=== PATIENT | female | born 1940 | race Caucasian/White ===

== ENCOUNTER 2021-03-01 05:02 | Inpatient (IN) ==
--- NOTE | 2021-01-20 16:19 | PAT Medication Instructions ---
Medication Instructions Date of Service January 20, 2021 Home Medications apixaban [Eliquis] 5 mg PO BID baclofen 10 mg PO HS cyanocobalamin (vitamin B-12) 1,000 mcg PO QAM docusate sodium [Stool Softener] 100 mg PO DAILY PRN ergocalciferol (vitamin D2) [Vitamin D2] 1,250 mcg PO WK hydrocodone-acetaminophen 1 tab PO Q6H PRN metoprolol succinate 25 mg PO HS rosuvastatin 10 mg PO HS sertraline 50 mg PO HS ASK your prescriber and surgeon apixaban [Eliquis] 5 mg PO BID (in order for spinal anesthesia, Eliquis needs to be stopped 72 hours/3 days before surgery. Please check if okay with doctor that prescribes this to you) DO NOT take the morning of surgery cyanocobalamin (vitamin B-12) 1,000 mcg PO QAM docusate sodium [Stool Softener] 100 mg PO DAILY PRN ergocalciferol (vitamin D2) [Vitamin D2] 1,250 mcg PO WK Take morning of surgery With a small sip of water, OTHERWISE NOTHING TO EAT OR DRINK AFTER MIDNIGHT: hydrocodone-acetaminophen 1 tab PO Q6H PRN (okay to take up to 4 hours prior to surgery if needed) Take evening before surgery baclofen 10 mg PO HS docusate sodium [Stool Softener] 100 mg PO DAILY PRN (if needed) hydrocodone-acetaminophen 1 tab PO Q6H PRN (if needed) metoprolol succinate 25 mg PO HS rosuvastatin 10 mg PO HS sertraline 50 mg PO HS Other Notes If you have any questions please call us at [phone] or [phone] or [phone] or [phone]
--- NOTE | 2021-01-23 08:25 | History & Physical Report ---
Date of Service Date of Service: January 24, 2021 Date of Procedure: 02/22/21 Procedure: Right Total Knee Arthroplasty Assessment & Plan (1) Arthritis of right knee: Risks and benefits of procedure discussed in detail today, patient would like to proceed with a Right total knee replacement at [facility] as scheduled. will obtain medical clearance from Dr Lyons prior to surgery as well as obtain PATs at [facility]. Will place on ASA 81mg po bid x 1 month post op, f/u 2 weeks post op for routine post-operative care and x-ray, sooner if having any problems. will make arrangements for HHPT at the time of discharge. At this point in time, has failed conservative measures and would like to proceed with surgical intervention. The risks and benefits have been discussed including, but not limited to, risk of infection, nerve injury, stiffness, loss of motion, failure to improve, etc. Reasonable outcomes and options of treatment were discussed. An explanation of appropriate alternatives to the procedure that may be advantageous were discussed and their risks and benefits, as well as the risks and benefits of not proceeding with treatment. I offered to answer any additional inquiries concerning the treatment involved. All the patient's questions were answered. The patient is agreeable, understanding of the treatment plan and alternatives, and wishes to proceed with the treatment plan. History of Present Illness Chief Complaint: Right knee pain Primary Care Provider: NO PCP Sabrina is a 80 year old female who complains of right knee pain, presents for pre-op evaluation prior to a right total knee replacement by Dr Martell at [facility]. she complains of pain, decreased range of motion and stiffness in her right knee. she states that the symptoms have been chronic and non-traumatic. Currently she states that the symptoms are moderate-severe and rated as 6/10. The pain is described as aching, sharp and throbbing. Her symptoms are aggravated by ascending stairs, daily activities, first steps while awake walking. Prior NSAIDs include Celebrex, she is unable to currently take NSAIDs due to Eliquis. she has been treated with previous cortisone injections in the past without much relief. she states that she typically uses a walker to assist with ambulation however since her stroke she also uses a wheelchair. Allergies Allergy/AdvReac Type Severity Reaction Status Date / Time amoxicillin Allergy Mild Rash Verified 01/19/21 09:16 celecoxib [From Celebrex] Allergy Mild Rash Verified 01/19/21 09:16 latex Allergy Mild Rash Verified 01/23/21 10:34 Sulfa (Sulfonamide Allergy Mild Rash Verified 01/19/21 09:16 Antibiotics) valdecoxib [From Bextra] Allergy Mild Rash Verified 01/19/21 09:16 tramadol Allergy Unknown Unknown Verified 01/23/21 10:34 reaction Home Medications Medication Instructions Recorded Confirmed Type apixaban [Eliquis] 5 mg PO BID 01/19/21 01/19/21 History baclofen 10 mg PO HS 01/19/21 01/19/21 History cyanocobalamin (vitamin B-12) 1,000 mcg PO QAM 01/19/21 01/19/21 History docusate sodium [Stool Softener] 100 mg PO DAILY PRN 01/19/21 01/19/21 History ergocalciferol (vitamin D2) 1,250 mcg PO WK 01/19/21 01/19/21 History [Vitamin D2] hydrocodone-acetaminophen 1 tab PO Q6H PRN 01/19/21 01/19/21 History metoprolol succinate 25 mg PO HS 01/19/21 01/19/21 History rosuvastatin 10 mg PO HS 01/19/21 01/19/21 History sertraline 50 mg PO HS 01/19/21 01/19/21 History Past Med/Surg History Medical History Atrial fibrillation Paroxysmal, follows with Dr. 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 Beliefs That Will Affect Care: Roman Catholic Roman Catholic Beliefs: JEHOVAW WITNESS (NO BLOOD PROCUCTS) Current Living Situation: Spouse Feels Safe at Home: Yes Assistive Devices: Denture - Upper, Glasses and Wheelchair Review of Systems Review of Systems: All systems reviewed & are unremarkable except as noted in HPI & below Constitutional: no fever, no chills and no sweats Respiratory: no cough and no dyspnea Cardiovascular: no chest pain, no dyspnea and no orthopnea Gastrointestinal: no abdominal pain, no nausea and no vomiting Musculoskeletal: as per Subjective / HPI Physical Exam Physical Exam: HT: 5ft 2in WT: 87.5kg BP: 130/80 Pulse: 67 Constitutional: WD/WN, vitals as above no acute distress Respiratory: normal respiratory effort, lungs clear to auscultation no respiratory distress, no labored breathing and does not use accessory muscles Cardiovascular: RRR, no murmur, no edema Gastrointestinal (Abdomen): normal bowel sounds, soft, nontender, no hepatosplenomegaly Musculoskeletal: Knee: + knee abnormal to inspection (Right Knee: ), + effusion (+1 effusion), + limited ROM of knee (ROM 0/3/110), + knee ROM with crepitation, + joint line tenderness (medial joint line) and + Shawna's sign positive; no deformity, no skin erythema, no ecchymosis, no valgus laxity, no varus laxity, anterior drawer test negative, Melvina's sign negative and pivot shift test negative Results & Data Results & Data ([facility]) Diagnostic Findings Right Knee X-ray: Right knee series showing advanced degenerative changes to the right knee, narrowing of the medial compartment and patello-femoral joint with patellar spurring noted, findings showing joint space narrowing of the medial compartment and patello-femoral joint, osteophyte formation and subchondral sclerosis noted. overall varus alignment. no acute bony pathology noted.
--- NOTE | 2021-01-23 10:58 | Anesthesiology Consultation ---
Date of Service January 23, 2021 Assessment & Plan (1) Encounter for pre-operative examination: - COVID screening: Per assessment on 01/23: Travel screen negative, no known COVID-19 positive contacts or current COVID-19 related symptoms. Surgeon arranging preop COVID testing. Awaiting results. - Eliquis instructions: patient made aware that in order for spinal anesthesia, Eliquis needs to be held 72 hours prior to surgery. Patient voiced understanding/will check if okay with prescriber. - Caodaism: OR made aware. No T&S done at [facility] per patient request Chart Review Chart Review: Acceptable Risk for Surgery (pending surgeon-ordered cardiology preop evaluation) and Patient seen in Pre Admission Testing Teaching & Discussion Pre-Anesthesia Teaching/Discussion Notes: Instructed NPO after midnight before surgery,except medications with 15 cc of water. Medication instructions provided according to the [facility] guidelines. History Surgery Operation Date: 02/22/21 11:10 Proposed Procedures p Total Knee Arthroplasty - Michael Martell DO Right side (confirmed with patient/booking sheet) Height/Weight Height: 5 ft 2 in Weight: 87.7 kg Allergies Allergy/AdvReac Type Severity Reaction Status Date / Time amoxicillin Allergy Mild Rash Verified 01/19/21 09:16 celecoxib [From Celebrex] Allergy Mild Rash Verified 01/19/21 09:16 latex Allergy Mild Rash Verified 01/23/21 10:34 Sulfa (Sulfonamide Allergy Mild Rash Verified 01/19/21 09:16 Antibiotics) valdecoxib [From Bextra] Allergy Mild Rash Verified 01/19/21 09:16 tramadol Allergy Unknown Unknown Verified 01/23/21 10:34 reaction Medications Home Medications Medication Instructions Recorded Confirmed Last Taken apixaban [Eliquis] 5 mg PO BID 01/19/21 01/19/21 Unknown baclofen 10 mg PO HS 01/19/21 01/19/21 Unknown cyanocobalamin (vitamin B-12) 1,000 mcg PO QAM 01/19/21 01/19/21 Unknown docusate sodium [Stool Softener] 100 mg PO DAILY PRN 01/19/21 01/19/21 Unknown ergocalciferol (vitamin D2) 1,250 mcg PO WK 01/19/21 01/19/21 Unknown [Vitamin D2] hydrocodone-acetaminophen 1 tab PO Q6H PRN 01/19/21 01/19/21 Unknown metoprolol succinate 25 mg PO HS 01/19/21 01/19/21 Unknown rosuvastatin 10 mg PO HS 01/19/21 01/19/21 Unknown sertraline 50 mg PO HS 01/19/21 01/19/21 Unknown Past Medical History Medical History Atrial fibrillation Paroxysmal, follows with Dr. 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 Exercise / Class Metabolic Activity III < 4 Walking/Shop/Light housework (uses walker) Past Family History Family History Other No family history of adverse response to anesthesia Past Surgical History Surgical History History of appendectomy History of arthroscopy Left knee History of cataract surgery R/L History of tonsillectomy History of tooth extraction Past Anesthesia History No Hx of Anesthesia Complications and No Family Hx of Anesthesia Complications History of PONV No Hx of PONV and No Hx of Motion Sickness Social History Smoking Status: Never smoker Do You Dip or Chew Tobacco: No Hx Alcohol Use: No Hx Substance Use: No substance use type: does not use Review of Systems No snoring. Patient denies chest pain, shortness of breath, fever, chills, cough, wheezing, palpitations. Physical Exam Vital Signs VITALS BP 166/81 P 59 TEMP 98.5 SP02 96%RA RESP 16 PHYSICAL Full cervical extension range of motion. Full TMJ range of motion. TMD 3.5 finger breaths Mallampati Score 3 Dentition: full upper denture, several missing lower Lungs: clear throughout to auscultation Cardiac: regular rate and rhythm, no murmurs noted Spine: normal Carotid arteries: negative bruit Extremities: non-pitting LE edema Lab Results Anesthesia Preop Results Results Anesthesia Widget: WBC 8.12 K/uL (4.8-10.8) 01/23/21 Hgb 14.3 g/dL (12.0-16.0) 01/23/21 Hct 42.4 % (37-47) 01/23/21 Plt 168 K/uL (130-400) 01/23/21 Na 141 mmol/L (136-145) 01/23/21 K 3.3 mmol/L (3.5-5.1) L 01/23/21 Cl 107 mmol/L (98-107) 01/23/21 CO2 28 mmol/L (21-32) 01/23/21 BUN 8 mg/dl (7-18) 01/23/21 Creat 0.83 mg/dl (0.6-1.2) 01/23/21 Glucose Level 96 mg/dl (70-99) 01/23/21 PT 10.3 Seconds (9.0-12.0) 01/23/21 PTT 26.8 Seconds (21.0-31.0) 01/23/21 INR 1.0 (0.9-1.1) 01/23/21 HA1c 6.2 % (4.5-5.6) H 01/23/21 Urine Color Dark Yellow 01/23/21 Urine Appearance Clear (Clear) 01/23/21 Urine pH 6.0 (4.5-7.5) 01/23/21 Urine Specific Kendall 1.036 (1.000-1.030) H 01/23/21 Urine Protein Trace (Negative) H 01/23/21 Urine Glucose (UA) Negative (Negative) 01/23/21 Urine Ketones Trace (Negative) H 01/23/21 Urine Blood Negative (Negative) 01/23/21 Urine Nitrite Negative (Negative) 01/23/21 Urine Bilirubin 1+ (Negative) H 01/23/21 Urine Urobilinogen Negative (Negative) 01/23/21 Urine Leukocyte Esterase 1+ (Negative) H 01/23/21 Urine WBC (Auto) 1-5 /hpf (0-5) 01/23/21 Urine RBC (Auto) 5-10 /hpf (0-4) H 01/23/21 Urine Hyaline Casts (Auto) 5-10 /lpf (0-5) H 01/23/21 Urine Epithelial Cells (Auto) >30 /lpf (0-5) H 01/23/21 Urine Bacteria (Auto) Negative (Negative) 01/23/21 Testing Electrocardiogram Date: 01/23/21 Findings: + SB @ (59) Chest X-Ray Date: 01/23/21 FINDINGS: No pneumothorax. No pleural effusions. No focal lung consolidations to suggest pneumonia. No evidence for pulmonary edema. The heart is normal in size. Mitral anus calcifications are noted. Prior cholecystectomy. Mild superior endplate compression deformity at L1. This is technically age indeterminate but likely old. IMPRESSION: No acute process. Echocardiogram Date: 04/11/18 LVEF 65%. Thickened aortic valve leaflets with no significant stenosis or regurgitation. Severe calcification of the posterior mitral valve annulus with no significant stenosis or regurgitation.
--- NOTE | 2021-02-01 12:46 | History & Physical Report ---
Date of Service date of service: February 01, 2021 Date of Procedure: 02/22/21 Procedure: Right Total Knee Arthroplasty Assessment & Plan (1) Arthritis of right knee: Risks and benefits of procedure discussed in detail today, patient would like to proceed with a Right total knee replacement at [facility] as scheduled. will obtain medical clearance from Dr Lyons prior to surgery as well as obtain PATs at [facility]. Will resume her Eliquis post op, f/u 2 weeks post op for routine post-operative care and x-ray, sooner if having any problems. will make arrangements for HHPT at the time of discharge. At this point in time, has failed conservative measures and would like to proceed with surgical intervention. The risks and benefits have been discussed including, but not limited to, risk of infection, nerve injury, stiffness, loss of motion, failure to improve, etc. Reasonable outcomes and options of treatment were discussed. An explanation of appropriate alternatives to the procedure that may be advantageous were discussed and their risks and benefits, as well as the risks and benefits of not proceeding with treatment. I offered to answer any additional inquiries concerning the treatment involved. All the patient's questions were answered. The patient is agreeable, understanding of the treatment plan and alternatives, and wishes to proceed with the treatment plan. History of Present Illness Chief Complaint: Right knee pain Primary Care Provider: NO PCP Sabrina is a 80 year old female who complains of right knee pain, presents for pre-op evaluation prior to a right total knee replacement by Dr Martell at [facility]. she complains of pain, decreased range of motion and stiffness in her right knee. she states that the symptoms have been chronic and non-traumatic. Currently she states that the symptoms are moderate-severe and rated as 6/10. The pain is described as aching, sharp and throbbing. Her symptoms are agg ravated by ascending stairs, daily activities, first steps while awake walking. Prior NSAIDs include Celebrex, she is unable to currently take NSAIDs due to Eliquis. she has been treated with previous cortisone injections in the past without much relief. she states that she typically uses a walker to assist with ambulation however since her stroke she also uses a wheelchair. Allergies Allergy/AdvReac Type Severity Reaction Status Date / Time amoxicillin Allergy Mild Rash Verified 01/19/21 09:16 celecoxib [From Celebrex] Allergy Mild Rash Verified 01/19/21 09:16 latex Allergy Mild Rash Verified 01/23/21 10:34 Sulfa (Sulfonamide Allergy Mild Rash Verified 01/19/21 09:16 Antibiotics) valdecoxib [From Bextra] Allergy Mild Rash Verified 01/19/21 09:16 tramadol Allergy Unknown Unknown Verified 01/23/21 10:34 reaction Home Medications Medication Instructions Recorded Confirmed Type apixaban [Eliquis] 5 mg PO BID 01/19/21 01/19/21 History baclofen 10 mg PO HS 01/19/21 01/19/21 History cyanocobalamin (vitamin B-12) 1,000 mcg PO QAM 01/19/21 01/19/21 History docusate sodium [Stool Softener] 100 mg PO DAILY PRN 01/19/21 01/19/21 History ergocalciferol (vitamin D2) 1,250 mcg PO WK 01/19/21 01/19/21 History [Vitamin D2] hydrocodone-acetaminophen 1 tab PO Q6H PRN 01/19/21 01/19/21 History metoprolol succinate 25 mg PO HS 01/19/21 01/19/21 History rosuvastatin 10 mg PO HS 01/19/21 01/19/21 History sertraline 50 mg PO HS 01/19/21 01/19/21 History Past Med/Surg History Medical History Atrial fibrillation Paroxysmal, follows with Dr. 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 Surgical History History of appendectomy History of arthroscopy Left knee History of cataract surgery R/L History of tonsillectomy History of tooth extraction Family History Other No family history of adverse response to anesthesia Social History Smoking Status: Never smoker Second Hand Exposure: Yes ( A CHILD); Hx Alcohol Use: No Hx Substance Use: No Preferred Language: Bengali Manager [employer] Required: No Beliefs That Will Affect Care: Baptist Baptist Beliefs: JEHOVAW WITNESS (NO BLOOD PROCUCTS) Current Living Situation: Spouse Feels Safe at Home: Yes Assistive Devices: Denture - Upper, Glasses and Wheelchair Review of Systems Review of Systems: All systems reviewed & are unremarkable except as noted in HPI & below Constitutional: no fever, no chills and no sweats Respiratory: no cough and no dyspnea Cardiovascular: no chest pain, no dyspnea and no orthopnea Gastrointestinal: no abdominal pain, no nausea and no vomiting Musculoskeletal: as per Subjective / HPI Physical Exam Physical Exam: HT: 5ft 2in WT: 87.5kg BP: 130/80 Pulse: 67 Constitutional: WD/WN, vitals as above no acute distress Respiratory: normal respiratory effort, lungs clear to auscultation no respiratory distress, no labored breathing and does not use accessory muscles Cardiovascular: RRR, no murmur, no edema Gastrointestinal (Abdomen): normal bowel sounds, soft, nontender, no hepatosplenomegaly Musculoskeletal: Knee: + knee abnormal to inspection (Right Knee: ), + effusion (+1 effusion), + limited ROM of knee (ROM 0/3/110), + knee ROM with crepitation, + joint line tenderness (medial joint line) and + Shawna's sign positive; no deformity, no skin erythema, no ecchymosis, no valgus laxity, no varus laxity, anterior drawer test negative, Melvina's sign negative and pivot shift test negative Results & Data Results & Data ([facility]) Diagnostic Findings Right Knee X-ray: Right knee series showing advanced degenerative changes to the right knee, narrowing of the medial compartment and patello-femoral joint with patellar spurring noted, findings showing joint space narrowing of the medial compartment and patello-femoral joint, osteophyte formation and subchondral sclerosis noted. overall varus alignment. no acute bony pathology noted.
[2021-03-01] MEDS ORDERED: FAMOTIDINE 20 MG TAB PO SCH (06:00)
[2021-03-01] MEDS ORDERED: TRANEXAMIC ACID 1,000 MG **IV Intra-op IV SCH (06:00)
[2021-03-01] MEDS ORDERED: TRANEXAMIC ACID 1,000 MG **IV Pre-op IV SCH (06:00)
[2021-03-01] MEDS ORDERED: LR 500ML BOLUS, THEN 15ML/HR IV SCH (06:00)
[2021-03-01] MEDS ORDERED: ROPIVACAINE 0.5% HCL/PF 150 MG, BUPIVACAINE 0.75% MPF 20 ML, EPINEPHrine 30MG/30ML (OR ... INSTIL SCH (06:00)
[2021-03-01] MEDS ORDERED: METOCLOPRAMIDE HCL 10 MG TABLET PO SCH (06:00)
[2021-03-01] MEDS ORDERED: VANCOMYCIN HCL 1,250 MG in SODIUM CHLORIDE 0.9% 250 ML IV SCH (06:00)
[2021-03-01] MEDS ORDERED: GABAPENTIN 300 MG CAP PO SCH (06:00)
[2021-03-01] MEDS ORDERED: dexAMETHasone 4 MG TAB PO SCH (06:00)
[2021-03-01] MEDS ORDERED: ACETAMINOPHEN 500 MG TAB PO SCH (06:00)
[2021-03-01] MEDS ORDERED: BUPIVACAINE 0.5 % 5 MG/1 ML PF 10ML VIAL ONE (06:14)
[2021-03-01] MEDS ORDERED: ROPIVACAINE 0.5% 5 MG/ML 30 ML VIAL ONE (06:15)
[2021-03-01] MEDS ORDERED: MIDAZOLAM HCL 1 MG/ML 2ML VIAL ONE ×2 (06:41)
[2021-03-01] MEDS ORDERED: fentaNYL citrate 100 MCG/2 ML VIAL ONE (06:42)
[2021-03-01] MEDS ORDERED: PROPOFOL IV EMULSION 10 MG/ML 20 ML VIAL IV ONE ×2 (06:46→08:58)
[2021-03-01] MEDS ORDERED: LIDOCAINE 2% 2 ML VIAL/AMP(20MG/ML) INFIL ONE (06:46)
[2021-03-01] MEDS ORDERED: ONDANSETRON INJ 2 MG/ML 2 ML VIAL IV PRN ×2 (06:59→10:27)
[2021-03-01] MEDS ORDERED: ATROPINE SULFATE 0.1 MG/ML 10ML SYR IV PRN (06:59)
[2021-03-01] MEDS ORDERED: ePHEDrine sulfate 50 MG/ML AMP IV PRN (06:59)
[2021-03-01] MEDS ORDERED: fentaNYL citrate 100 MCG/2 ML VIAL IV PRN (06:59)
[2021-03-01] MEDS ORDERED: HYDROmorphone INJ 1 MG/ML SYRINGE IV PRN ×2 (06:59→10:27)
[2021-03-01] MEDS ORDERED: ORTHO JOINT ANESTHETIC ONE (07:02)
--- NOTE | 2021-03-01 07:04 | History & Physical Bridge Note ---
Date of Service March 01, 2021 History & Physical Bridge Note I have examined the patient, reviewed the History & Physical and in the interval since the performance of the History & Physical I have noted the following changes of clinical significance: no changes noted
--- NOTE | 2021-03-01 08:34 | Operative Report ---
Post Operative Report Pre & Post Diagnosis Operation Date: 03/01/21 07:15 Pre-Op Diagnosis: Unilateral Primary Osteoarthritis Knee Right Post-Op Diagnosis: Unilateral Primary Osteoarthritis Knee Right I identified the patient and participated in the time-out.: Yes Procedure Operation Date: 03/01/21 07:15 Actual Procedures p Right Total Knee Arthroplasty(Right) utilizing [employer] persona patient matched total knee arthroplasty size 5 standard femur the tibia 13 medial constrained polytwenty 8 oval patella- Michael Martell DO Surgeon Michael Martell DO Waiter/[employer] Juan David PATEL Estimated Blood Loss 5 Findings See Below (Patient presents with severe end-stage DJD eburnated [id number] marginal osteophyte subchondral sclerosis moderate to large effusion) Specimens Bone and cartilage Drains Medium bore Hemovac Anesthesia Type MAC Spinal Regional Complications None Disposition Disposition: Recovery Room Indications Patient presents after failed attempted conservative management clinic physical therapy anti-inflammatories relative rest activity modification corticosteroid injection viscosupplementation patient presents for right total knee arthr oplasty Description of Procedure After proper prepping and draping of the Right lower extremity anterior midline incision was made over the region of the extensor extensor mechanism after meticulous hemostasis was obtained and maintained in subcutaneous tissues a medial parapatellar incision was made The patella was subluxed lateralward the medial lateral gutter were cleaned from any hypertrophic synovitis and scar tissue of the distal femoral block was placed and the distal femoral osteotomy cut was made subsequently the chamfers anterior and posterior osteotomy cuts were made utilizing the 4-in-1 block the tibia was subsequently subluxed anteriorward medial and ateral meniscal remnants were excised in their entirety remnants of the anterior and posterior cruciate ligaments were excised in their entirety excellent exposure of the proximal tibia was obtained the tibial osteotomy guide was placed on the proximal tibial osteotomy cut was made once again the knee was irrigated with copious amounts of sterile saline solution the patella was subsequently everted lateralward thickened scar tissue around the patella was removed the patella was subsequently cut utilizing a freehand technique and was drilled prepared for final preparation and placement of patella socially flexion-extension gaps were checked and the equal and symmetric trials were placed to the appropriate femoral and tibial trials with poly-spacer being placed for equal flexion and extension gaps and full range of motion including extension to 0 and flexion to 140 the trial components after having been taken to recovery range of motion was subsequently removed meticulous hemostasis was obtained and maintained subsequently a knee block injection of joint cocktail including ropivacaine 0.5% 150 mg. Bupivacaine 0.5% epinephrine 1-200,030 mL's toradol 30 mg dexamethasone 4 mg ketamine 10 mg clonidine 100 micrograms normal saline solution 30 mg was infiltrated into the soft tissues of the posterior knee medial lateral gutters and periosteal synovium special attention was paid to protect neurovascular structures at all times subsequently trial components having been removed the knee was irrigated with sterile saline solution. debris was removed the proximal tibia was subsequently prepared and was made ready for the placement of the tibial component tibial component was also cemented and tamped into position the femoral component was subsequently placed and cemented in the position the patellar component was subsequently cemented in position because hemostasis once again obtained and maintained wound having been thoroughly irrigated with debridement and debridement lavage was performed as well as a medial parapatellar incision closed with #1 Vicryl in interrupted fashion subcutaneous was closed with #2 Vicryl skin was closed with skin clips. PA-C was necessary for prepping and drapping as well as wound closure of deep fascia Sub cutaneous tissue and skin and was necessary for the case. A sterile compressive dressing was placed patient was taken to recovery in stable condition of report dictated by Jasbir I attest to the content of the Intraoperative Record and any orders documented therein. Any exceptions are noted below. I attest to the content of the Intraoperative Record and any orders documented therein. Any exceptions are noted below.
--- NOTE | 2021-03-01 09:55 | XRay Report ---
XR knee RT 1 or 2V routine CLINICAL HISTORY: Postoperative evaluation. COMPARISON: None FINDINGS: Alignment of the total right knee arthroplasty is anatomic. There is no periprosthetic fra cture or unexpected radiopaque foreign body. Skin micah are present. There are surgical drains. IMPRESSION: Expected findings following total right knee arthroplasty. ACT 112: Negative or not required by law. Electronically signed by: Alexander Gibson M.D. 03/01/2021 9:54 AM
--- NOTE | 2021-03-01 10:01 | Anesthesiology Progress Note ---
Date of Service March 01, 2021 Anesthesia Post Procedure Vital Signs Vital Signs: Temp Pulse Pulse Resp BP BP Pulse Ox 03/01/21 09:45 36.2 C L 72 22 152/74 H 95 03/01/21 09:35 74 17 142/67 H 98 03/01/21 09:25 73 16 140/71 100 03/01/21 09:15 77 16 135/66 100 03/01/21 09:09 36.5 C 82 16 127/58 L 98 03/01/21 06:19 36.9 C 62 18 178/91 H 96 Transfer of Care Handoff Completed per policy Notes Mental Status: alert / awake / arousable and participated in evaluation Patient Amnestic to Procedure: Yes Nausea / Vomiting: adequately controlled Pain: adequately controlled Airway Patency, RR, SpO2: stable & adequate BP & HR: stable & adequate Hydration State: stable & adequate Neuraxial Anesthesia: was administered and sensory block is resolving Anesthetic Complications: no major complications apparent
[2021-03-01] MEDS ORDERED: MAGNESIUM HYDROXIDE SUSP 30 ML UDC PO PRN (10:27)
[2021-03-01] MEDS ORDERED: NALOXONE HCL 0.4 MG/1 ML VIAL/CARP IV PRN (10:27)
[2021-03-01] MEDS ORDERED: diphenhydrAMINE Capsule 25 MG CAP PO PRN (10:27)
[2021-03-01] MEDS ORDERED: bisacodyL 10 MG SUPP PR PRN (10:27)
[2021-03-01] MEDS ORDERED: METOCLOPRAMIDE HCL INJ 5 MG/ML 2 ML VIAL IV PRN (10:27)
[2021-03-01] MEDS: SODIUM CHLORIDE 0.9% 1000ML 1,000 ML IV SCH ×2 (11:00→21:44)
[2021-03-01] MEDS: ACETAMINOPHEN 500 MG TAB PO SCH ×2 (13:48→21:46)
[2021-03-01] MEDS: CLINDAMYCIN 600 MG in DEXTROSE 5% 50 ML IV SCH (17:13)
[2021-03-01] MEDS: oxyCODONE HCL IR 5 MG TAB (IMMEDIATE RELEASE) PO PRN (18:47)
[2021-03-01] MEDS ORDERED: BACLOFEN 10 MG TAB PO SCH (21:00)
[2021-03-01] MEDS ORDERED: METOPROLOL SUCC 25MG EXT REL TAB PO SCH (21:00)
[2021-03-01] MEDS ORDERED: SENNA 8.6 MG TAB PO SCH (21:00)
[2021-03-01] MEDS ORDERED: ROSUVASTATIN CALCIUM 10 MG TAB PO SCH (21:00)
[2021-03-01] MEDS ORDERED: SERTRALINE HCL 50 MG TABLET PO SCH (21:00)
[2021-03-01] MEDS: DOCUSATE SODIUM 100 MG CAP PO SCH (21:45)
[2021-03-02] MEDS: CLINDAMYCIN 600 MG in DEXTROSE 5% 50 ML IV SCH (00:58)
[2021-03-02] MEDS: oxyCODONE HCL IR 5 MG TAB (IMMEDIATE RELEASE) PO PRN (04:23)
[2021-03-02 05:43] LABS: Hematocrit (blood only) 37.8 % (37-47); Hemoglobin 12.7 g/dL (12.0-16.0); Mean Corpuscular Hemoglobin 35.5 pg (25-34); Mean Corpuscular Hgb Conc 33.6 g/dL (32-36); Mean Corpuscular Volume 105.6 fL (80-100); Mean Platelet Volume 11.2 fL (7.4-10.4); Platelet Count 192 K/uL (130-400); RDW Coefficient of Variation 13.7 % (11.5-14.5); RDW Standard Deviation 52.9 fL (36.4-46.3); Red Blood Count 3.58 M/uL (4.2-5.4)
[2021-03-02] MEDS: ACETAMINOPHEN 500 MG TAB PO SCH (05:45)
[2021-03-02 06:09] LABS: BUN Creatinine Ratio 14.2 (10-20); Calcium 8.6 mg/dl (8.5-10.1); Est GFR (African American) 64.8 ml/min; Est GFR (Non-African American) 55.9 ml/min; Potassium 3.5 mmol/L (3.5-5.1)
--- NOTE | 2021-03-02 06:56 | Orthopedic Progress Note ---
Date of Service March 02, 2021 Assessment & Plan (1) History of total right knee replacement: Plan: POD #1 s/p Right TKA pt/ot dvt proph with ANA/SCD/ASA plan for d/c home with home health PT Admission and Anticipated Discharge Date Admission Date: March 01, 2021 Supervising Physician Co-Signing Physician Notes Patient seen and examined. Agree with JORGE Booker's note as above. Patient resting comfortably. Pain is controlled. She is getting ready to leave for home. Subjective POD #1 s/p Right TKA Review of Systems Constitutional: no fever, no chills and no sweats Respiratory: no cough and no dyspnea Cardiovascular: no chest pain and no dyspnea Gastrointestinal: no abdominal pain, no nausea and no vomiting Physical Exam Physical Exam: Vital Signs Temp Pulse Pulse Pulse Resp BP Pulse Ox 03/02/21 03:42 37.1 C 62 16 122/70 93 03/01/21 22:17 36.5 C 64 18 144/76 H 92 03/01/21 19:36 36.5 C 63 20 138/74 95 03/01/21 15:06 36.5 C 60 17 129/63 92 03/01/21 13:09 36.4 C L 70 16 125/77 92 03/01/21 12:13 36.3 C L 76 18 133/76 95 03/01/21 11:03 36.4 C L 65 16 135/64 91 03/01/21 10:35 36.4 C L 64 16 144/77 H 92 03/01/21 10:05 36.5 C 16 136/72 94 03/01/21 09:45 36.2 C L 72 22 152/74 H 95 03/01/21 09:35 74 17 142/67 H 98 03/01/21 09:25 73 16 140/71 100 03/01/21 09:15 77 16 135/66 100 03/01/21 09:09 36.5 C 82 16 127/58 L 98 Intake and Output 03/01/21 03/01/21 03/02/21 14:59 22:59 06:59 Intake Total 1700 / 3783.000 1629.000 / 3783.00 0 454 / 3783.000 Output Total 415 / 1415 525 / 1415 475 / 1415 Balance 1285 / 2368.000 1104.000 / 2368.00 0 -21 / 2368.000 Intake: IV 100 / 5949.860 7804.000 / 1583.00 0 54 / 1583.000 Clindamycin 60 0 mg In Dextrose 54 / 108 54 / 108 5% 50 ml @ 100 mls/hr IV Q8H OSBALDO Rx#:[id number] Lactated Ringe r's 1,000 ml @ 15 0 / 0 mls/hr IV .Q24 H OSBALDO Rx#: [id number] Sodium Chlorid e 0.9% 1000ML 1, 1000.000 / 1000.00 0 000 ml @ 100 m ls/hr IV .Q10H OSBALDO Rx#:[id number] Tranexamic Aci d / 0.7% NaCl 1, 100 / 200 100 / 200 000 mg In 100 ml @ 600 mls/hr IV TODAY@0600 OSBALDO Rx#:[id number] Vancomycin HCl 1,250 mg In 275 / 275 Sodium Chlorid e 0.9% 250 ml @ 200 mls/hr IV PREOP OSBALDO Rx#: [id number] IV Perioperative 1600 / 1600 Oral 200 / 600 400 / 600 Output: Urine 400 / 1200 400 / 1200 400 / 1200 Estimated Blood Loss 5 / 5 Drain Output 10 210 125 / 210 75 / 210 Right Knee 10 210 125 / 210 75 / 210 Other: Other Intake Pastora rce sips # Unmeasured Voi ds 1 1 Musculoskeletal: Right Leg: NVDI, calf SNT, negative anthony sign. DP palpable, able to wiggle toes/ankle movement without difficulty. dressing clean dry and intact. Results & Data ([facility]) Vital Signs (Past 12 Hours) Vital Signs Temp Pulse Resp BP Pulse Ox 03/02/21 03:42 37.1 C 62 16 122/70 93 03/01/21 22:17 36.5 C 64 18 144/76 H 92 03/01/21 19:36 36.5 C 63 20 138/74 95 Laboratory Results Laboratory Results WBC 18.00 K/uL (4.8-10.8) H 03/02/21 05:18 RBC 3.58 M/uL (4.2-5.4) L 03/02/21 05:18 Hgb 12.7 g/dL (12.0-16.0) 03/02/21 05:18 Hct 37.8 % (37-47) 03/02/21 05:18 MCV 105.6 fL (80-100) H 03/02/21 05:18 MCH 35.5 pg (25-34) H 03/02/21 05:18 MCHC 33.6 g/dL (32-36) 03/02/21 05:18 RDW Std Deviation 52.9 fL (36.4-46.3) H 03/02/21 05:18 RDW Coeff of David 13.7 % (11.5-14.5) 03/02/21 05:18 Plt Count 192 K/uL (130-400) 03/02/21 05:18 MPV 11.2 fL (7.4-10.4) H 03/02/21 05:18 Sodium 139 mmol/L (136-145) 03/02/21 05:18 Potassium 3.5 mmol/L (3.5-5.1) 03/02/21 05:18 Chloride 108 mmol/L (98-107) H 03/02/21 05:18 Carbon Dioxide 26 mmol/L (21-32) 03/02/21 05:18 Anion Gap 5.0 (3-11) 03/02/21 05:18 BUN 14 mg/dl (7-18) 03/02/21 05:18 Creatinine 0.97 mg/dl (0.6-1.2) 03/02/21 05:18 Est Cr Clr Drug Dosing 49.0 ml/min 03/02/21 05:18 Est GFR ( Amer) 64.8 ml/min 03/02/21 05:18 Est GFR (Non-Af Amer) 55.9 ml/min 03/02/21 05:18 BUN/Creatinine Ratio 14.2 (10-20) 03/02/21 05:18 Glucose 124 mg/dl (70-99) H 03/02/21 05:18 Calcium 8.6 mg/dl (8.5-10.1) 03/02/21 05:18 COVID-19 Eval Order Covid19 [facility] 03/01/21 05:30 SARS-CoV-2, RNA, NAAT NEGATIVE (NEGATIVE) 03/01/21 05:30 Blood Type A Positive 03/01/21 05:48 Antibody Screen NEGATIVE 03/01/21 05:48 Impressions Knee X-Ray 03/01/21 09:10 XR knee RT 1 or 2V routine CLINICAL HISTORY: Postoperative evaluation. COMPARISON: None FINDINGS: Alignment of the total right knee arthroplasty is anatomic. There is no periprosthetic fracture or unexpected radiopaque foreign body. Skin micah are present. There are surgical drains. IMPRESSION: Expected findings following total right knee arthroplasty. ACT 112: Negative or not required by law. Electronically signed by: Alexander Gibson M.D. 03/01/2021 9:54 AM
[2021-03-02] MEDS: DOCUSATE SODIUM 100 MG CAP PO SCH (08:48)
[2021-03-02] MEDS ORDERED: MULTIVITAMIN TAB PO SCH (09:00)
[2021-03-02] MEDS ORDERED: CYANOCOBALAMIN 500 MCG TABLET (VITAMIN B-12) PO SCH (09:00)
[2021-03-02] MEDS ORDERED: APIXABAN 5 MG TABLET PO SCH (09:00)
--- NOTE | 2021-03-02 14:41 | Discharge Summary ---
Date of Service date of discharge: March 02, 2021 date of admission: 03-01-21 Admission HPI Per Admitting Provider Sabrina is a 80 year old female who complains of right knee pain, presents for pre-op evaluation prior to a right total knee replacement by Dr Martell at [facility]. she complains of pain, decreased range of motion and stiffness in her right knee. she states that the symptoms have been chronic and non-traumatic. Currently she states that the symptoms are moderate-severe and rated as 6/10. The pain is described as aching, sharp and throbbing. Her symptoms are aggravated by ascending stairs, daily activities, first steps while awake walking. Prior NSAIDs include Celebrex, she is unable to currently take NSAIDs due to Eliquis. she has been treated with previous cortisone injections in the past without much relief. she states that she typically uses a walker to assist with ambulation however since her stroke she also uses a wheelchair. Principal Diagnosis right knee arthritis Discharge Exam Musculoskeletal Right knee: NVDI, calf SNT, negative anthony sign. DP palpable, able to wiggle toes/ankle movement without difficulty. MAY dressing clean dry and intact. expected post-operative bruising noted. Discharge Data Allergies Allergy/AdvReac Type Severity Reaction Status Date / Time amoxicillin Allergy Mild Rash Verified 03/01/21 06:14 celecoxib [From Celebrex] Allergy Mild Rash Verified 03/01/21 06:14 latex Allergy Mild Rash Verified 03/01/21 06:14 Sulfa (Sulfonamide Allergy Mild Rash Verified 03/01/21 06:14 Antibiotics) valdecoxib [From Bextra] Allergy Mild Rash Verified 03/01/21 06:14 tramadol Allergy Unknown Unknown Verified 03/01/21 06:14 reaction Procedures Performed Operation Date: 03/01/21 07:15 Actual Procedures p Right Total Knee Arthroplasty(Right) - Michael Martell, Ordered Studies 03/01/21 05:00 US - OR guided needle placemen Routine Hospital Course (1) History of total right knee replacement: Total Time Total Time Spent Total Time Spent (In Minutes): 20 Discharge Plan Discharge Items Patient Disposition: Home - Home Health Services Reason For Visit: Unilateral Primary Osteoarthritis Knee Right Discharge Diagnosis: right total knee arthroplasty Condition on Discharge: Good Activity: Per Instructions section Lifting: Wait until after follow-up appointment Weightbearing Comment: WBAT with walker Non-emergency contact: Surgeon Call non-emergency contact if: you have any medication questions, your temperature is above 101, your wound has increased redness, your wound has increased drainage and your wound pain has increased Follow-up/Referrals: Milad Arreguin DO [Primary Care Provider] - Diet: Regular Addtl Attending Provider Instructions: ACTIVITY RECOMMENDATIONS: SELF CARE INSTRUCTIONS AFTER TOTAL KNEE REPLACEMENT A. You may need to continue a physical therapy program after discharge from the hospital. There are several options available to you. Your doctor will assist you in selecting the best one for you. 1. An out-patient facility 2 to 3 times a week for therapy or home therapy. 2. Continue working on all exercises taught to you in the hospital. Your goals should be to increase bending of your knee to 90 degrees and beyond and to fully straighten your knee. B. You may progress at your own pace from walking with a walker or crutches to a cane; then to no assistive devices. C. Make walking a part of your daily routine. Be up as much as comfortable with rest periods throughout the day. Rest with leg elevation is very important. Use the ice wrap frequently for the first 3-4 weeks. D. There are no restrictions on activities. You may ride in a car, shop, participate in stick inserter and all social activities. E. Wear the long elastic stockings (ANA hose) 20 hours a day for 2 weeks after surgery. They can be removed several times a day for laundering and for a bath. F. You may shower, no tub baths until cleared by your doctor. SPECIAL CARE INSTRUCTIONS: VERY IMPORTANT TO READ AND REVIEW A. There are a few signs you need to watch for after you are home. Call [facility] if you notice any of the followin. Increased severe knee pain. Some pain is expected especially when you exercise. 2. Increased swelling in your leg or knee; pain or swelling of the calf muscle in either lower leg. 3. Any fluid drainage from the incision. 4. Shortness of breath or chest pain. B. Please call [facility] at if you have any concerns or questions about your operation or recovery. The doctor or his nurse will return your call promptly. C. You must take antibiotics before dental work, bladder, bowel or other surgery. Your doctor will provide you with a permanent care to carry describing this precaution. IMPORTANT: * REMEMBER TO TAKE ASPIRIN, 81 MG, TWICE DAILY FOR 4 WEEKS UNLESS OTHERWISE DIRECTED. THIS IS YOUR BLOOD THINNER. * HIGH RISK PATIENTS MAY BE PRESCRIBED A STRONGER BLOOD THINNER. THIS WILL BE PROVIDED AT DISCHARGE. * CALL IF INCREASED PAIN, REDNESS, DRAINAGE OR FEVER GREATER THAT 101. * WEAR ANA HOSE 20 HOURS PER DAY FOR 2 WEEKS. * MAY Dressing- This is a large suction dressing covering your incision. This will help pull any excess drainage from the wound and allow your incision to heal properly. You may shower with this if you can keep the unit outside of the shower. If any bleeding or leakage is noted please call your doctor's office. This will remain on your incision for 7 days and then should be removed. This can be done yourself or by the home nursing staff if applicable. The entire unit is disposable once removed. Once removed, keep incision clean and dry. If redness or drainage is noted, please call your surgeon. IF INCISION IS LEAKING THROUGH DRESSING, CALL THE OFFICE . FOLLOW UP VISIT: If appointment is not already scheduled: Please call [facility] to make a follow-up appointment for 2 weeks after your surgery at . Pending Studies at Discharge: No Stand-Alone Forms: My [facility] [employer], Smoking Cessation Medications and DC Order Prescriptions: New acetaminophen [Tylenol Extra Strength] 500 mg Tablet 1,000 mg PO Q8 21 Days Qty: 126 RF: 0 oxycodone 5 mg Tablet 5 - 10 mg PO Q6H PRN (Reason: pain) Qty: 30 RF: 0 clindamycin HCl 300 mg capsule 300 mg PO TID 7 Days Qty: 21 RF: 0 Continued baclofen 10 mg Tablet 10 mg PO HS RF: 0 docusate sodium [Stool Softener] 100 mg Capsule 100 mg PO DAILY PRN (Reason: Constipation) RF: 0 metoprolol succinate 25 mg Tablet Extended Release 24 Hr 25 mg PO HS RF: 0 ergocalciferol (vitamin D2) [Vitamin D2] 1,250 mcg (50,000 unit) Capsule 1,250 mcg PO WK RF: 0 sertraline 50 mg Tablet 50 mg PO HS RF: 0 rosuvastatin 10 mg Tablet 10 mg PO HS RF: 0 Eliquis 5 mg Tablet 5 mg PO BID RF: 0 cyanocobalamin (vitamin B-12) 1,000 mcg Capsule 1,000 mcg PO QAM RF: 0 Discontinued hydrocodone-acetaminophen 5-325 mg Tablet 1 tab PO Q6H PRN (Reason: Pain) RF: 0 Discharge Orders: Discharge Order (Routine); Ordered 03/02/21 Ordered By: Juan David Booker Admission Data Admit Date/Time: 03/01/21 09:10 Attending Provider: Michael Martell Admit Provider: Michael Martell Primary Care Provider: Milad Arreguin Other Interventions: Discharge Summary Assessment (RN) Last Done: 03/02/21 13:59
== END 2021-03-02 14:38 | disposition home health service (06) | DRG 470 ==
LOC: ASU 05:02 → 3E 05:02 → OBSVTOIN 09:10

== ENCOUNTER 2021-03-04 08:20 | Inpatient (IN) ==
[2021-03-04] MEDS ORDERED: levoFLOXacin/D5W 750 MG/150 ML BAG IV STA (08:52)
[2021-03-04] MEDS ORDERED: VANCOMYCIN CONSULT ACTIVE PRN ×2 (08:52→16:47)
[2021-03-04] MEDS ORDERED: VANCOMYCIN HCL 2,250 MG in SODIUM CHLORIDE 0.9% 500 ML IV ONE (08:52)
[2021-03-04] MEDS ORDERED: SODIUM CHLORIDE 0.9% 1000ML 1,000 ML IV SCH (09:00)
--- NOTE | 2021-03-04 09:42 | XRay Report ---
XR chest 1V portable HISTORY: SEPSIS COMPARISON: Chest 01/23/2021. FINDINGS: No pneumothorax. No pleural effusions. The cardiac silhouette remains mildly enlarged. No n ew focal lung consolidations to suggest pneumonia. No evidence for pulmonary edema. IMPRESSION: No significant change compared to the prior study. No acute process. ACT 112: Negative or not required by law. Electronically signed by: Barrett Avila M.D. 03/04/2021 9:40 AM
--- NOTE | 2021-03-04 09:58 | XRay Report ---
XR knee RT 1 or 2V routine CLINICAL HISTORY: knee pain/redness/recent arthroplasty COMPARISON STUDY: Right knee radiographs 03/01/2021. FINDINGS: There is again noted a right total knee arthroplasty. The hardware is intact. No fracture o r dislocation. Skin micah are in place. There is anterior soft tissue swelling and a small knee eff usion. IMPRESSION: 1. Right total knee arthroplasty. 2. No fractures. 3. Anterior soft tissue swelling and a small right knee effusion. ACT 112: Negative or not required by law. Electronically signed by: Barrett Avila M.D. 03/04/2021 9:56 AM
[2021-03-04 10:06] LABS: Basophils # (auto) 0.03 K/uL (0-0.2); Basophils % (auto) 0.2 %; Eosinophils # (auto) 0.23 K/uL (0-0.5); Eosinophils % (auto) 1.8 %; Hematocrit (blood only) 40.5 % (37-47); Hemoglobin 13.9 g/dL (12.0-16.0); Immature Granulocytes # (auto) 0.05 K/uL (0.00-0.02); Immature Granulocytes % (auto) 0.4 %; Lymphocytes # (auto) 2.01 K/uL (1.2-3.4); Lymphocytes % (auto) 15.8 %; Mean Corpuscular Hemoglobin 36.2 pg (25-34); Mean Corpuscular Hgb Conc 34.3 g/dL (32-36); Mean Corpuscular Volume 105.5 fL (80-100); Mean Platelet Volume 11.3 fL (7.4-10.4); Monocytes # (auto) 2.24 K/uL (0.11-0.59); Monocytes % (auto) 17.6 %; Neutrophils # (auto) 8.18 K/uL (1.4-6.5); Neutrophils % (auto) 64.2 %; Platelet Count 188 K/uL (130-400); RDW Coefficient of Variation 14.6 % (11.5-14.5); RDW Standard Deviation 56.8 fL (36.4-46.3); Red Blood Count 3.84 M/uL (4.2-5.4); White Blood Count 12.74 K/uL (4.8-10.8)
[2021-03-04 10:19] LABS: Partial Thromboplastin Ratio 0.9; Partial Thromboplastin Time 24.6 Seconds (21.0-31.0); Prothrombin Time 10.5 Seconds (9.0-12.0)
[2021-03-04 10:43] LABS: Albumin Globulin Ratio 0.8 (0.9-2); Albumin Level 3.2 gm/dl (3.4-5.0); BUN Creatinine Ratio 7.2 (10-20); Bilirubin,Total 0.8 mg/dl (0.2-1); Calcium 9.1 mg/dl (8.5-10.1); Creatinine Clr Calc Pharmacy 55.1 ml/min; Est GFR (Non-African American) 63.8 ml/min; Globulin 4.1 gm/dl (2.5-4.0); Total Protein 7.3 gm/dl (6.4-8.2)
[2021-03-04] MEDS ORDERED: MoRPHine SULFATE 2 MG/ML CARP IV STA (11:16)
[2021-03-04 11:40] LABS: Appearance Urine Clear (Clear); Bilirubin Urine Negative (Negative); Blood Urine Negative (Negative); Color Urine Yellow; Glucose Urine UA Negative (Negative); Ketones Urine Negative (Negative); Leukocyte Esterase Urine Negative (Negative); Nitrite Urine Negative (Negative); Protein Urine Negative (Negative); Specific Gravity Urine 1.018 (1.000-1.030); Urobilinogen Urine Negative (Negative)
--- NOTE | 2021-03-04 12:55 | Emergency Department Note ---
History of Present Illness General Chief complaint: Knee Injury/Pain Stated complaint: LEFT KNEE PAIN Time Seen by Provider: 03/04/21 08:52 History of Present Illness Maximum Pain Intensity: 1 80-year-old female presents to the ED with a chief complaint of right knee pain. The patient had a total right knee arthroplasty On March 01. She reports increase in her right knee pain over the past 24 hours. She states that she is unable to walk. She states "it is so painful that I cannot stand it". The patient does not feel she is able to go home as she cannot stand the pain and her cannot help her get around. She denies any other complaints at this time. She does report some increased redness and swelling to the knee. Home Medications Medication Instructions Recorded Confirmed Type apixaban 5 mg tablet (Eliquis) 5 mg PO BID 01/19/21 03/04/21 History baclofen 10 mg tablet 10 mg PO HS 01/19/21 03/04/21 History cyanocobalamin (vitamin B-12) 1,000 mcg PO QAM 01/19/21 03/04/21 History 1,000 mcg capsule docusate sodium 100 mg capsule 100 mg PO DAILY PRN 01/19/21 03/04/21 History (Stool Softener) ergocalciferol (vitamin D2) 1,250 1,250 mcg PO WK 01/19/21 03/04/21 History mcg (50,000 unit) capsule (Vitamin D2) metoprolol succinate 25 mg 25 mg PO HS 01/19/21 03/04/21 History tablet,extended release 24 hr rosuvastatin 10 mg tablet 10 mg PO HS 01/19/21 03/04/21 History sertraline 50 mg tablet 50 mg PO HS 01/19/21 03/04/21 History acetaminophen 500 mg tablet 1,000 mg PO Q8 21 Days #126 tab 03/02/21 03/04/21 Rx (Tylenol Extra Strength) clindamycin HCl 300 mg capsule 300 mg PO TID 7 Days #21 cap 03/02/21 03/04/21 Rx oxycodone 5 mg tablet 5 - 10 mg PO Q6H PRN #30 tab 03/02/21 03/04/21 Rx Allergies Allergy/AdvReac Type Severity Reaction Status Date / Time amoxicillin Allergy Mild Rash Verified 03/04/21 09:11 celecoxib [From Celebrex] Allergy Mild Rash Verified 03/04/21 09:11 latex Allergy Mild Rash Verified 03/04/21 09:11 Sulfa (Sulfonamide Allergy Mild Rash Verified 03/04/21 09:11 Antibiotics) valdecoxib [From Bextra] Allergy Mild Rash Verified 03/04/21 09:11 tramadol Allergy Unknown Unknown Verified 03/04/21 09:11 reaction Past Med/Surg History Medical History Atrial fibrillation Paroxysmal, follows with Dr. 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 Beliefs That Will Affect Care: Caodaism Caodaism Beliefs: JEHOVAW WITNESS (NO BLOOD PROCUCTS) marital status: Current Living Situation: Spouse Feels Safe at Home: Yes Assistive Devices: Glasses and Walker Review of Systems As above otherwise negative for 10 systems Physical Exam Vital Signs Vital Signs - 24 hr 03/04/21 08:21 03/04/21 08:37 03/04/21 08:39 Temperature 36.3 C L 37.9 C H Temperature Source Temporal Artery Scan Oral Pulse Rate 78 72 Pulse Rate [Left Finger] 70 Pulse Rate from SpO2 Sensor 72 Respiratory Rate 18 18 18 Respiratory Effort / Characteristics Non-Labored Non-Labored Spontaneous Respiratory Depth Normal Normal Blood Pressure 207/77 H 178/90 H Blood Pressure [Right Arm] 176/90 H Blood Pressure Mean 120 119 Blood Pressure Mean [Right Arm] 118 Blood Pressure Position [Right Arm] Lying Pulse Oximetry 94 93 98 Oxygen Delivery Method Room Air Sepsis Recent Fever Within 48 Hours No Sepsis New/Unexplained Change in Mental Status No Sepsis Action Taken by Nursing No Action Required 03/04/21 09:37 03/04/21 10:17 03/04/21 10:30 Temperature Temperature Source Pulse Rate 86 79 Pulse Rate [Left Finger] 79 Pulse Rate from SpO2 Sensor Respiratory Rate 20 19 20 Respiratory Effort / Characteristics Non-Labored Spontaneous Non-Labored Spontaneous Respiratory Depth Normal Blood Pressure 178/88 H Blood Pressure [Right Arm] 178/88 H Blood Pressure Mean 118 Blood Pressure Mean [Right Arm] 118 Blood Pressure Position [Right Arm] Lying Pulse Oximetry 93 95 Oxygen Delivery Method Room Air Room Air Sepsis Recent Fever Within 48 Hours Sepsis New/Unexplained Change in Mental Status Sepsis Action Taken by Nursing 03/04/21 11:29 03/04/21 11:30 03/04/21 12:00 Temperature Temperature Source Pulse Rate 86 88 85 Pulse Rate [Left Finger] 91 H Pulse Rate from SpO2 Sensor 89 88 Respiratory Rate 19 20 19 Respiratory Effort / Characteristics Respiratory Depth Blood Pressure 173/78 H 176/79 H 155/77 H Blood Pressure [Right Arm] 176/79 H Blood Pressure Mean 109 111 103 Blood Pressure Mean [Right Arm] 111 Blood Pressure Position [Right Arm] Pulse Oximetry 93 95 Oxygen Delivery Method Room Air Sepsis Recent Fever Within 48 Hours Sepsis New/Unexplained Change in Mental Status Sepsis Action Taken by Nursing CONSTITUTIONAL/VITAL SIGNS: Reviewed / noted above. GENERAL: Non-toxic in appearance. INTEGUMENTARY: Warm, dry, and [place]. HEAD: Normocephalic. EYES: without scleral icterus or trauma. ENT/OROPHARYNX: clear and moist. LYMPHADENOPATHY/NECK: Is supple without lymphadenopathy or meningismus. RESPIRATORY: Lungs clear and equal. CARDIOVASCULAR: Regular rate and rhythm. GI/ABDOMEN: Soft and nontender. No organomegaly or pulsatile mass. No rebound or guarding. Normal bowel sounds. EXTREMITIES: Warm and well perfused. Right knee reveals some edema as well as some erythema. The erythema was outlined. Significant discomfort with movement. BACK: No CVA tenderness. NEUROLOGICAL: Intact without focal deficits. PSYCHIATRIC: normal affect. MUSCULOSKELETAL: Normally developed with good muscle tone. TRIAGE NURSING DOCUMENTATION REVIEWED. Course Administered Medications Discontinued Medications Vancomycin HCl 2,250 mg/ (Sodium Chloride) 545 mls @ 200 mls/hr IV NOW ONE Stop: 03/04/21 11:35 Last Admin: 03/04/21 09:45 Dose: 200 mls/hr Documented by: [id number] Sodium Chloride (Nss 1000ml) 1,000 mls @ 999 mls/hr IV .Q1H1M OSBALDO Stop: 03/04/21 10:00 Last Infusion: 03/04/21 10:46 Dose: 0 mls/hr Documented by: [id number] Admin: 03/04/21 09:46 Dose: 999 mls/hr Documented by: [id number] Levofloxacin/Dextrose (Levaquin/D5w) 750 mg in 150 mls @ 100 mls/hr IV NOW STA Stop: 03/04/21 10:21 Last Admin: 03/04/21 11:55 Dose: 100 mls/hr Documented by: [id number] Morphine Sulfate (Morphine Sulfate 2 Mg/Ml Carp) 2 mg IV NOW STA Stop: 03/04/21 11:17 Last Admin: 03/04/21 11:34 Dose: 2 mg Documented by: [id number] Medical Decision Making Differential Diagnosis Fracture, subluxation, dislocation, contusion, ligamentous injury, neurovascular, compartment syndrome, rhabdomyolysis, as well as other pathologies. Medical Records Attestation: I reviewed the patient's medical records. Home Medications Current Medication List: was personally reviewed by me Laboratory Data Result diagrams: 03/04/21 09:40 03/04/21 09:40 Lab Results 03/04/21 03/04/21 03/04/21 Range/Units 09:40 09:40 09:40 WBC 12.74 H (4.8-10.8) K/uL RBC 3.84 L (4.2-5.4) M/uL Hgb 13.9 (12.0-16.0) g/dL Hct 40.5 (37-47) % MCV 105.5 H (80-100) fL MCH 36.2 H (25-34) pg MCHC 34.3 (32-36) g/dL RDW Std Deviation 56.8 H (36.4-46.3) fL RDW Coeff of David 14.6 H (11.5-14.5) % Plt Count 188 (130-400) K/uL MPV 11.3 H (7.4-10.4) fL Immature Gran % (Auto) 0.4 % Neut % (Auto) 64.2 % Lymph % (Auto) 15.8 % [place] % (Auto) 17.6 % Eos % (Auto) 1.8 % Baso % (Auto) 0.2 % Neut # (Auto) 8.18 H (1.4-6.5) K/uL Lymph # (Auto) 2.01 (1.2-3.4) K/uL [place] # (Auto) 2.24 H (0.11-0.59) K/uL Eos # (Auto) 0.23 (0-0.5) K/uL Baso # (Auto) 0.03 (0-0.2) K/uL Immature Gran # (Auto) 0.05 H (0.00-0.02) K/uL PT 10.5 (9.0-12.0) Seconds INR 1.0 (0.9-1.1) APTT 24.6 (21.0-31.0) Seconds PTT Ratio 0.9 Sodium 139 (136-145) mmol/L Potassium 3.0 L (3.5-5.1) mmol/L Chloride 105 (98-107) mmol/L Carbon Dioxide 32 (21-32) mmol/L Anion Gap 2.0 L (3-11) BUN 6 L (7-18) mg/dl Creatinine 0.87 (0.6-1.2) mg/dl Est Cr Clr Drug Dosing 55.1 ml/min Est GFR ( Amer) 74.0 ml/min Est GFR (Non-Af Amer) 63.8 ml/min BUN/Creatinine Ratio 7.2 L (10-20) Glucose 110 H (70-99) mg/dl Lactate (0.4-2.0) mmol/L Calcium 9.1 (8.5-10.1) mg/dl Magnesium 2.0 (1.8-2.4) mg/dl Total Bilirubin 0.8 (0.2-1) mg/dl AST 36 (15-37) U/L ALT 30 (12-78) U/L Alkaline Phosphatase 72 (45-117) U/L Total Protein 7.3 (6.4-8.2) gm/dl Albumin 3.2 L (3.4-5.0) gm/dl Globulin 4.1 H (2.5-4.0) gm/dl Albumin/Globulin Ratio 0.8 L (0.9-2) Procalcitonin (0-0.5) ng/ml Urine Color Urine Appearance (Clear) Urine pH (4.5-7.5) Ur Specific [place] (1.000-1.030) Urine Protein (Negative) Urine Glucose (UA) (Negative) Urine Ketones (Negative) Urine Blood (Negative) Urine Nitrite (Negative) Urine Bilirubin (Negative) Urine Urobilinogen (Negative) Ur Leukocyte Esterase (Negative) 03/04/21 03/04/21 03/04/21 Range/Units 09:40 09:40 10:30 WBC (4.8-10.8) K/uL RBC (4.2-5.4) M/uL Hgb (12.0-16.0) g/dL Hct (37-47) % MCV (80-100) fL MCH (25-34) pg MCHC (32-36) g/dL RDW Std Deviation (36.4-46.3) fL RDW Coeff of David (11.5-14.5) % Plt Count (130-400) K/uL MPV (7.4-10.4) fL Immature Gran % (Auto) % Neut % (Auto) % Lymph % (Auto) % [place] % (Auto) % Eos % (Auto) % Baso % (Auto) % Neut # (Auto) (1.4-6.5) K/uL Lymph # (Auto) (1.2-3.4) K/uL [place] # (Auto) (0.11-0.59) K/uL Eos # (Auto) (0-0.5) K/uL Baso # (Auto) (0-0.2) K/uL Immature Gran # (Auto) (0.00-0.02) K/uL PT (9.0-12.0) Seconds INR (0.9-1.1) APTT (21.0-31.0) Seconds PTT Ratio Sodium (136-145) mmol/L Potassium (3.5-5.1) mmol/L Chloride (98-107) mmol/L Carbon Dioxide (21-32) mmol/L Anion Gap (3-11) BUN (7-18) mg/dl Creatinine (0.6-1.2) mg/dl Est Cr Clr Drug Dosing ml/min Est GFR ( Amer) ml/min Est GFR (Non-Af Amer) ml/min BUN/Creatinine Ratio (10-20) Glucose (70-99) mg/dl Lactate 1.2 (0.4-2.0) mmol/L Calcium (8.5-10.1) mg/dl Magnesium (1.8-2.4) mg/dl Total Bilirubin (0.2-1) mg/dl AST (15-37) U/L ALT (12-78) U/L Alkaline Phosphatase (45-117) U/L Total Protein (6.4-8.2) gm/dl Albumin (3.4-5.0) gm/dl Globulin (2.5-4.0) gm/dl Albumin/Globulin Ratio (0.9-2) Procalcitonin < 0.05 (0-0.5) ng/ml Urine Color Yellow Urine Appearance Clear (Clear) Urine pH 5.0 (4.5-7.5) Ur Specific [place] 1.018 (1.000-1.030) Urine Protein Negative (Negative) Urine Glucose (UA) Negative (Negative) Urine Ketones Negative (Negative) Urine Blood Negative (Negative) Urine Nitrite Negative (Negative) Urine Bilirubin Negative (Negative) Urine Urobilinogen Negative (Negative) Ur Leukocyte Esterase Negative (Negative) Imaging Data Radiologist's Impression: Chest X-Ray 03/04/21 08:52 XR chest 1V portable HISTORY: SEPSIS COMPARISON: Chest 01/23/2021. FINDINGS: No pneumothorax. No pleural effusions. The cardiac silhouette remains mildly enlarged. No new focal lung consolidations to suggest pneumonia. No evidence for pulmonary edema. IMPRESSION: No significant change compared to the prior study. No acute process. ACT 112: Negative or not required by law. Electronically signed by: Barrett Avila M.D. 03/04/2021 9:40 AM Knee X-Ray 03/04/21 08:52 XR knee RT 1 or 2V routine CLINICAL HISTORY: knee pain/redness/recent arthroplasty COMPARISON STUDY: Right knee radiographs 03/01/2021. FINDINGS: There is again noted a right total knee arthroplasty. The hardware is intact. No fracture or dislocation. Skin micah are in place. There is anterior soft tissue swelling and a small knee effusion. IMPRESSION: 1. Right total knee arthroplasty. 2. No fractures. 3. Anterior soft tissue swelling and a small right knee effusion. ACT 112: Negative or not required by law. Electronically signed by: Barrett Avila M.D. 03/04/2021 9:56 AM MDM Narrative Patient presents with right knee pain and a temperature of 37.9 with some increased redness. The patient was empirically started on some IV antibiotics in case of infection. Her white blood cell count was slightly elevated at 12.7. Procalcitonin level was less than 0.05. Urine did not show infection. Chest x-ray did not show acute process. X-ray of the knee shows some soft tissue swelling as well as a small right knee effusion. Because the patient is unable to go home due to her pain and lack of ability to get around and her not being able to help, she will require further inpatient evaluation and care. I did speak with the medicine service about this. Orthopedics has been paged to talk to them about the case so they can evaluate the patient to see if they feel there is an infection or not. The patient was treated here with IV antibiotics as well as some IV pain medication and IV fluids. Impression & Plan Acute pain of right knee, Cellulitis Discharge Plan Visit Data Chief Complaint: Knee Injury/Pain Stated Complaint: LEFT KNEE PAIN ED Provider: Alvaro Reardon Discharge Problem: Acute pain of right knee, Cellulitis Patient Disposition: Being Evaluated by Hospitalist Forms Stand Alone Forms: [facility] Prescriptions Prescriptions: No Action baclofen 10 mg Tablet 10 mg PO HS RF: 0 docusate sodium [Stool Softener] 100 mg Capsule 100 mg PO DAILY PRN (Reason: Constipation) RF: 0 metoprolol succinate 25 mg Tablet Extended Release 24 Hr 25 mg PO HS RF: 0 ergocalciferol (vitamin D2) [Vitamin D2] 1,250 mcg (50,000 unit) Capsule 1,250 mcg PO WK RF: 0 sertraline 50 mg Tablet 50 mg PO HS RF: 0 rosuvastatin 10 mg Tablet 10 mg PO HS RF: 0 Eliquis 5 mg Tablet 5 mg PO BID RF: 0 cyanocobalamin (vitamin B-12) 1,000 mcg Capsule 1,000 mcg PO QAM RF: 0 acetaminophen [Tylenol Extra Strength] 500 mg Tablet 1,000 mg PO Q8 21 Days Qty: 126 RF: 0 oxycodone 5 mg Tablet 5 - 10 mg PO Q6H PRN (Reason: pain) Qty: 30 RF: 0 clindamycin HCl 300 mg capsule 300 mg PO TID 7 Days Qty: 21 RF: 0 Referrals Referrals: Milad Arreguin DO [Primary Care Provider] -
--- NOTE | 2021-03-04 13:29 | History & Physical Report ---
Date of Service March 04, 2021 Assessment & Plan (1) Acute pain of right knee: Plan: S/P right knee arthroplasty - possibility of surrounding soft tissue infection- warm, erythema, swelling - ICE PRN - Ultrasound to rule out DVT - Continue Vancomycin- received Levaquin in EMD and was home on Clindamycin - Blood cultures pending, urine negative, broaden out abx if clinically worsens - Monitor fever curve - Orthopaedics consulted (2) History of total right knee replacement: Plan: As above - Will likely need rehab facility post discharge as - PT evaluation prior was noteable for difficulties - Continue Vitamin D - Continue pain control - Continue ICS q1 hour while awake (3) Atrial fibrillation: Plan: Afib- noted on loop recorder following CVA - On eliquis with interuptions for surgery - Hold Eliquis tonight - She is in NSR-will place on 40mg BID Lovenox for VTE prophy - Continue Metoprolol (4) Hyperlipidemia: Plan: No acute needs - Continue rosuvastain (5) Depression: Plan: Continue certraline (6) Stroke: Plan: History of- no acute deficits - Continue disease modifying medications as above - BP controlled (7) DVT prophylaxis: Plan: SCD to left leg with ANA hose to left leg, Lovenox 40mg BID, hold home Eliquis in case of need for procedure History of Present Illness Chief Complaint: Knee pain Primary Care Provider: Milad Arreguin 80 YOF with past medical history of: 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 Patient had a right total knee arthroplasty done on 03/[address] Martell. Patient was discharged to home on 03/02/21 on oral clindamycin. Patient comes in today for complaints of her knee hurting and afraid and unable to move it because of the pain. She had PT/OT evaluation performed in the hospital as she was having difficulty with transfer and using her walker, she had a PT visit at home yesterday, where she states she was unable to do much because of the pain. She rates her pain 8/10 and says her whole leg is sore. The area has some surrounding erythema to it, with +2 edema from knee down to foot and is larger than her left leg. In the EMD the patient had a routine labs, CXR, UA, and right knee films done. The patient has a WBC count 12 this is down from her 18 previous, although she had a low grade temperature in the EMD to 37.9. She was given Levaquin and Vancomycin in the EMD. Orthopaedics was consulted and IM was notified for admission. Patient will be admitted to medical/surgical floor. Pain control, PT/OT evaluations, continue Vancomycin, continue Orthopaedics consult, ultrasound right lower extremity for DVT. Patient will likely need rehab facility for continued ROM support and ADLS. Allergies Allergy/AdvReac Type Severity Reaction Status Date / Time amoxicillin Allergy Mild Rash Verified 03/04/21 09:11 celecoxib [From Celebrex] Allergy Mild Rash Verified 03/04/21 09:11 latex Allergy Mild Rash Verified 03/04/21 09:11 Sulfa (Sulfonamide Allergy Mild Rash Verified 03/04/21 09:11 Antibiotics) valdecoxib [From Bextra] Allergy Mild Rash Verified 03/04/21 09:11 tramadol Allergy Unknown Unknown Verified 03/04/21 09:11 reaction Home Medications Medication Instructions Recorded Confirmed Type apixaban 5 mg tablet (Eliquis) 5 mg PO BID 01/19/21 03/04/21 History baclofen 10 mg tablet 10 mg PO HS 01/19/21 03/04/21 History cyanocobalamin (vitamin B-12) 1,000 mcg PO QAM 01/19/21 03/04/21 History 1,000 mcg capsule docusate sodium 100 mg capsule 100 mg PO DAILY PRN 01/19/21 03/04/21 History (Stool Softener) ergocalciferol (vitamin D2) 1,250 1,250 mcg PO WK 01/19/21 03/04/21 History mcg (50,000 unit) capsule (Vitamin D2) metoprolol succinate 25 mg 25 mg PO HS 01/19/21 03/04/21 History tablet,extended release 24 hr rosuvastatin 10 mg tablet 10 mg PO HS 01/19/21 03/04/21 History sertraline 50 mg tablet 50 mg PO HS 01/19/21 03/04/21 History acetaminophen 500 mg tablet 1,000 mg PO Q8 21 Days #126 tab 03/02/21 03/04/21 Rx (Tylenol Extra Strength) clindamycin HCl 300 mg capsule 300 mg PO TID 7 Days #21 cap 03/02/21 03/04/21 Rx oxycodone 5 mg tablet 5 - 10 mg PO Q6H PRN #30 tab 03/02/21 03/04/21 Rx Past Med/Surg History Medical History (Updated 03/04/21 @ 14:28 by MILTON Hoffmann) Atrial fibrillation Paroxysmal, follows with Dr. 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 stroke (2018) > residual memory issues Surgical History History of appendectomy History of arthroscopy Left knee History of cataract surgery R/L History of tonsillectomy History of tooth extraction Family History Other No family history of adverse response to anesthesia Social History Smoking Status: Never smoker Second Hand Exposure: Yes ( A CHILD); Hx Alcohol Use: Yes Alcohol type: hard liquor Hx Substance Use: No Preferred Language: R[place] Communication Ability: Effective 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 Beliefs That Will Affect Care: Restorationism Restorationism Beliefs: Jehovah's witness - no Blood transfusion marital status: Current Living Situation: Spouse Current Living Situation Comment: Feels Safe at Home: No Would You Like to Speak to Someone About Your Situation: No Safety Concerns: Afraid for Others in Home Assistive Devices: Cane, Denture - Upper, Glasses, Walker and Wheelchair Review of Systems Review of Systems: REVIEW OF SYSTEMS: Constitutional: No fever, sweats or chills Eyes: No diplopia, no worsening or blurred vision ENT: normal hearing, no trouble swallowing Respiratory: No cough, sputum, dyspnea at rest or on exertion Cardiovascular: No chest pain, tightness or palpitations Abdomen: No pain, nausea, vomiting, diarrhea or constipation Musculoskeletal: (+) joint pain, calf pain, swelling right lower leg Neurologic: No weakness, numbness/tingling, or balance problems Psychiatric: (+) depression Skin: (+) erythema, Physical Exam Physical Exam: PHYSICAL EXAM: General: awake, alert, no apparent distress Head: Normocephalic, atraumatic ENT: PERRL, EOMI, no pharyngeal exudate, mucous membranes moist Neuro: AAO x 3, speech clear and appropriate, strength intact bilaterally 5/5, sensation intact and equal all extremities and dermatomes, no pronator drift Chest: equal rise and fall of the chest, no accessory muscle use, no heaves or thrills, Clear to auscultation, on room air, Cardiac: Regular rate and rhythm, telemetry reviewed, skin warm dry, cap refill <3 seconds, peripheral pulses +2 no JVD, no murmur, no edema GI: NABS x 4 quadrants, soft, nontender to palpation, no rebound, guarding or tenderness : Spontaneously voiding, no pain, no CVA tenderness, Extremities: two areas of surrounding erythema lateral and medial, marked with skin marker, right leg is swollen from knee to foot, with +2 edema, warm, limited ROM, PICOS woundvac in place with good seal Psych: Normal mood and affect Skin: as above Results & Data Results & Data ([facility]) Vital Signs (Past 12 Hours) Vital Signs Temp Pulse Pulse Resp BP BP Pulse Ox 03/04/21 12:00 85 19 155/77 H 95 03/04/21 11:30 88 20 176/79 H 93 03/04/21 11:29 86 91 H 19 173/78 H 176/79 H 03/04/21 10:30 79 79 20 178/88 H 95 03/04/21 10:17 86 19 178/88 H 03/04/21 09:37 20 93 03/04/21 08:39 37.9 C H 70 18 176/90 H 98 03/04/21 08:37 72 18 178/90 H 93 03/04/21 08:21 36.3 C L 78 18 207/77 H 94 Laboratory Results Abnormal lab results 03/04/21 03/04/21 Range/Units 09:40 09:40 WBC 12.74 H (4.8-10.8) K/uL RBC 3.84 L (4.2-5.4) M/uL MCV 105.5 H (80-100) fL MCH 36.2 H (25-34) pg RDW Std Deviation 56.8 H (36.4-46.3) fL RDW Coeff of David 14.6 H (11.5-14.5) % MPV 11.3 H (7.4-10.4) fL Neut # (Auto) 8.18 H (1.4-6.5) K/uL [place] # (Auto) 2.24 H (0.11-0.59) K/uL Immature Gran # (Auto) 0.05 H (0.00-0.02) K/uL Potassium 3.0 L (3.5-5.1) mmol/L Anion Gap 2.0 L (3-11) BUN 6 L (7-18) mg/dl BUN/Creatinine Ratio 7.2 L (10-20) Glucose 110 H (70-99) mg/dl Albumin 3.2 L (3.4-5.0) gm/dl Globulin 4.1 H (2.5-4.0) gm/dl Albumin/Globulin Ratio 0.8 L (0.9-2) Diagnostic Findings Chest X-Ray 03/04/21 08:52 XR chest 1V portable HISTORY: SEPSIS COMPARISON: Chest 01/23/2021. FINDINGS: No pneumothorax. No pleural effusions. The cardiac silhouette remains mildly enlarged. No new focal lung consolidations to suggest pneumonia. No evidence for pulmonary edema. IMPRESSION: No significant change compared to the prior study. No acute process. Electronically signed by: Barrett Avila M.D. 03/04/2021 9:40 AM Knee X-Ray 03/04/21 08:52 XR knee RT 1 or 2V routine CLINICAL HISTORY: knee pain/redness/recent arthroplasty COMPARISON STUDY: Right knee radiographs 03/01/2021. FINDINGS: There is again noted a right total knee arthroplasty. The hardware is intact. No fracture or dislocation. Skin micah are in place. There is anterior soft tissue swelling and a small knee effusion. IMPRESSION: 1. Right total knee arthroplasty. 2. No fractures. 3. Anterior soft tissue swelling and a small right knee effusion. Electronically signed by: Barrett Avila M.D. 03/04/2021 9:56 AM Medications Administered Discontinued Medications Vancomycin HCl 2,250 mg/ (Sodium Chloride) 545 mls @ 200 mls/hr IV NOW ONE Stop: 03/04/21 11:35 Last Infusion: 03/04/21 14:02 Dose: 0 mls/hr Documented by: [id number] Admin: 03/04/21 09:45 Dose: 200 mls/hr Documented by: [id number] Sodium Chloride (Nss 1000ml) 1,000 mls @ 999 mls/hr IV .Q1H1M OSBALDO Stop: 03/04/21 10:00 Last Infusion: 03/04/21 10:46 Dose: 0 mls/hr Documented by: [id number] Admin: 03/04/21 09:46 Dose: 999 mls/hr Documented by: [id number] Levofloxacin/Dextrose (Levaquin/D5w) 750 mg in 150 mls @ 100 mls/hr IV NOW STA Stop: 03/04/21 10:21 Last Infusion: 03/04/21 14:02 Dose: 0 mls/hr Documented by: [id number] Admin: 03/04/21 11:55 Dose: 100 mls/hr Documented by: [id number] Morphine Sulfate (Morphine Sulfate 2 Mg/Ml Carp) 2 mg IV NOW STA Stop: 03/04/21 11:17 Last Admin: 03/04/21 11:34 Dose: 2 mg Documented by: [id number] ECG Additional Comments: Normal sinus rhythm Normal ECG When compared with ECG of 23-JAN-2021 11:34, T wave inversion now evident in Inferior leads Nonspecific T wave abnormality now evident in Anterior leads Supervising Physician Co-Signing Physician Notes GROUP EXERCISE MANAGER Supervision note: I have personally seen and examined the patient and discussed and verified the brody points of the history and physical along with the plan with MILTON Nascimento with the following exceptions and/or additions: This patient is a 72-year-old female with history of paroxysmal atrial fibrillation on Eliquis, OA, hyperlipidemia, CVA, depression, who had a right TKA on 03/01 and was discharged home on clindamycin orally on 03/02 presumably for suspected wound infection or perhaps for prevention. She reports since that time, she has had development of severe worsening right knee pain and swelling with redness. In the ER, she was noted to have a fever, leukocytosis, and significant pain with erythema spreading around the knee. She denies any chest pain or shortness of breath, no nausea or vomiting, last bowel movement was 2 days ago. She denies cough. History and ROS reviewed as above Vitals reviewed Gen: AAOx3, NAD HEENT: Anicteric sclerae, EOMI CV: RRR no mgr nl S1S2 Pulm: CTAB no wcr Abd: +BS soft NT ND no masses or hernias Ext: Right lower extremity with significant 3-4+ edema with tenderness to palpation over the right knee with dressing in place that is with scant serous drainage, erythema spreading up medial thigh and down right mayo, unable to flex at all without severe pain Skin: Erythema the right lower extremity as above Neuro: Full strength throughout except not able to flex right knee Laboratory values reviewed Radiology studies reviewed ECG reviewed which shows normal sinus rhythm, nonspecific T wave changes in leads III and aVF 80-year-old female with history noted as above, here with right lower extremity pain, swelling, suspect postoperative total knee arthroplasty infection. With fever, leukocytosis Admit for pain control, ice, elevation, IV antibiotic therapy with vancomycin and she did receive 1 dose of levofloxacin in the ER which will be discontinued -Consulted orthopedics-discussed with them-they will see her in the morning Hold home Eliquis in case of need for procedure She is in sinus rhythm at this time Can use Lovenox 40 mg SQ twice daily for DVT prophylaxis Check venous Doppler of the right lower extremity to rule out DVT Will make n.p.o. after midnight in case of need for surgery PG Care Time/CCT Total # of Minutes Spent Total Time Spent with Patient: Total time spent is greater than 50% in coordination of care (as documented) at patient's floor/unit and/or counseling patient: Coding Level of Care Code 71648 Initial Inpt Care Lvl 3 Diagnoses Acute pain of right knee M25.561 History of total right knee replacement Z96.651 Hyperlipidemia E78.5 Atrial fibrillation I48.91 Depression F32.9 Stroke I63.9 DVT prophylaxis Z29.9
[2021-03-04] MEDS ORDERED: ONDANSETRON INJ 2 MG/ML 2 ML VIAL IV PRN (16:47)
[2021-03-04] MEDS ORDERED: DOCUSATE SODIUM 100 MG CAP PO PRN (16:47)
[2021-03-04] MEDS ORDERED: POLYETHYLENE (MIRALAX) 17 GM PACK PO PRN (16:47)
[2021-03-04] MEDS ORDERED: PNEUMOCOCCAL POLYSACCHARIDES 25 MCG/0.5 ML VIAL/SYR IM ONE (17:18)
[2021-03-04] MEDS: oxyCODONE HCL IR 5 MG TAB (IMMEDIATE RELEASE) PO PRN (17:29)
--- NOTE | 2021-03-04 17:36 | Pharmacy Report ---
Pharmacy Abx Initial Consult - Date of Service March 04, 2021 03/04/21 - Pharmacy Dosing Scope Date of Consult: 03/04/21 Consultation requested by: Didier Nascimento Pharmacy is consulted to initiate Vancomycin IV dosing therapy, order appropriate labs and adjust drug dose/frequency. - Subjective The patient is a 80 year old F admitted on 03/04/21 14:17. Patient admitted on March 04, 2021 - Objective Height: 5 ft 3 in Weight: 92.3 kg Vital Signs (Past 12hrs): Vital Signs Temp Pulse Pulse Resp BP BP Pulse Ox 03/04/21 16:49 37.3 C 91 H 20 151/72 H 93 03/04/21 16:05 100 H 20 144/71 H 92 03/04/21 14:01 90 16 142/80 H 93 03/04/21 12:00 85 19 155/77 H 95 03/04/21 11:30 88 20 176/79 H 93 03/04/21 11:29 86 91 H 19 173/78 H 176/79 H 03/04/21 10:30 79 79 20 178/88 H 95 03/04/21 10:17 86 19 178/88 H 03/04/21 09:37 20 93 03/04/21 08:39 37.9 C H 70 18 176/90 H 98 03/04/21 08:37 72 18 178/90 H 93 03/04/21 08:21 36.3 C L 78 18 207/77 H 94 Lab Results (24hrs): Laboratory Tests (24 Hours) 03/04/21 03/04/21 03/04/21 09:40 09:40 09:40 WBC 12.74 H Neut # (Auto) 8.18 H Creatinine 0.87 Est Cr Clr Drug Dosing 55.1 Procalcitonin < 0.05 Micro Results: 03/04/21 09:39 Aerobic Blood Culture - Pending Blood Anaerobic Blood Culture - Pending 03/04/21 09:39 Aerobic Blood Culture - Pending Blood Anaerobic Blood Culture - Pending - Risk Factors for Resistance * Hospitalization for 48 hours or more within the past 90 days - Assessment & Plan Assessment 80 year old F s/p R knee arthroplasty on March 01 and now presents with wound site cellulitis Plan IV Vancomycin for treatment of surgical site cellulitis Vancomycin IV * Dosing per AUC Nomogram * Loading dose: 2250 mg (~25 mg/kg) * Maintenance dose: 1000 mg IV (11.3 mg/kg) every 12 hours * Goal trough level for cellulitis: 13 to 17 mcg/mL * Trough level ordered for SaturdayMarch 06 prior to the noon dose Pharmacy will continue to follow and will adjust dose/frequency as necessary. Thank you.
[2021-03-04] MEDS: ENOXAPARIN INJ 40 MG/0.4 ML SYR SQ SCH (19:30)
[2021-03-04] MEDS: LACTATED RINGER'S 1,000 ML IV SCH (19:30)
[2021-03-04] MEDS: ROSUVASTATIN CALCIUM 10 MG TAB PO SCH (19:31)
[2021-03-04] MEDS: POTASSIUM CHLORIDE CRTAB 20 MEQ TABCR PO SCH (19:31)
[2021-03-04] MEDS: METOPROLOL SUCC 25MG EXT REL TAB PO SCH (19:31)
[2021-03-04] MEDS: BACLOFEN 10 MG TAB PO SCH (19:31)
[2021-03-04] MEDS: SERTRALINE HCL 50 MG TABLET PO SCH (19:31)
[2021-03-04] MEDS: ACETAMINOPHEN 325 MG TAB PO PRN (19:35)
[2021-03-04] MEDS ORDERED: APIXABAN 5 MG TABLET PO SCH (21:00)
[2021-03-05] MEDS: VANCOMYCIN HCL 1,000 MG in SODIUM CHLORIDE 0.9% 250 ML IV SCH ×3 (01:25→23:27)
[2021-03-05 06:14] LABS: Basophils # (auto) 0.01 K/uL (0-0.2); Basophils % (auto) 0.1 %; Eosinophils # (auto) 0.26 K/uL (0-0.5); Eosinophils % (auto) 2.9 %; Hematocrit (blood only) 34.2 % (37-47); Hemoglobin 11.4 g/dL (12.0-16.0); Immature Granulocytes # (auto) 0.04 K/uL (0.00-0.02); Immature Granulocytes % (auto) 0.4 %; Lymphocytes # (auto) 1.84 K/uL (1.2-3.4); Lymphocytes % (auto) 20.4 %; Mean Corpuscular Hemoglobin 35.3 pg (25-34); Mean Corpuscular Hgb Conc 33.3 g/dL (32-36); Mean Corpuscular Volume 105.9 fL (80-100); Monocytes # (auto) 1.73 K/uL (0.11-0.59); Monocytes % (auto) 19.2 %; Neutrophils # (auto) 5.15 K/uL (1.4-6.5); Platelet Count 157 K/uL (130-400); RDW Coefficient of Variation 14.4 % (11.5-14.5); RDW Standard Deviation 56.2 fL (36.4-46.3); Red Blood Count 3.23 M/uL (4.2-5.4); White Blood Count 9.03 K/uL (4.8-10.8)
[2021-03-05] MEDS: LACTATED RINGER'S 1,000 ML IV SCH ×2 (06:43→19:48)
[2021-03-05 06:49] LABS: BUN Creatinine Ratio 8.7 (10-20); Calcium 8.3 mg/dl (8.5-10.1); Creatinine Clr Calc Pharmacy 75.8 ml/min; Est GFR (African American) 98.1 ml/min; Est GFR (Non-African American) 84.6 ml/min; Magnesium 1.8 mg/dl (1.8-2.4); Potassium 3.3 mmol/L (3.5-5.1)
--- NOTE | 2021-03-05 08:16 | Ultrasound Report ---
RIGHT LOWER EXTREMITY VENOUS DOPPLER HISTORY: Right leg swelling. evaluate DVT post op COMPARISON STUDY: None. FINDINGS: There is normal compressibility, flow, and augmentation within the right lower extremity de ep venous system. IMPRESSION: No DVT within the right lower extremity ACT 112: Negative or not required by law. Electronically signed by: Barrett Avila M.D. 03/05/2021 8:14 AM
[2021-03-05] MEDS: oxyCODONE HCL IR 5 MG TAB (IMMEDIATE RELEASE) PO PRN ×3 (09:29→22:54)
[2021-03-05] MEDS: CYANOCOBALAMIN 500 MCG TABLET (VITAMIN B-12) PO SCH (09:29)
[2021-03-05] MEDS: ENOXAPARIN INJ 40 MG/0.4 ML SYR SQ SCH ×2 (09:29→20:39)
[2021-03-05] MEDS: POTASSIUM CHLORIDE CRTAB 20 MEQ TABCR PO SCH ×2 (09:29→20:40)
[2021-03-05] MEDS: ACETAMINOPHEN 325 MG TAB PO PRN (11:56)
[2021-03-05] MEDS ORDERED: MAGNESIUM CITRATE 296 ML/BTL PO STA (12:04)
[2021-03-05] MEDS ORDERED: HYDROmorphone INJ 0.5 MG/0.5 ML SYR IV PRN (12:04)
--- NOTE | 2021-03-05 12:09 | Hospitalist Progress Note ---
Date of Service March 05, 2021 Assessment & Plan (1) Acute pain of right knee: Plan: S/P right knee arthroplasty On 03/01 And presents with significant right knee pain, swelling, and erythema on postop day #3 along with fever and leukocytosis - possibility of surrounding soft tissue infection- warm, erythema, swelling Appears significantly improved since starting on IV antibiotics-Less erythema and leukocytosis improved, but still having chills today With severe edema noted, venous Doppler obtained and was negative for DVT -Continue Tylenol as needed -Continue ICE PRN -Continue Vancomycin- received Levaquin in EMD and was home on Clindamycin Postoperatively for presumed prophylaxis? -Blood cultures pending, urine negative - Monitor fever curve - Orthopaedics consulted-Plan is continued ice, antibiotics, and observation -Add IV Dilaudid as needed severe breakthrough pain is oxycodone is not doing much, continue Tylenol also for pain -Continue maintenance IV fluids as with poor p.o. intake and continuing to have fevers (2) History of total right knee replacement: Plan: As above - Will likely need rehab facility post discharge as - PT evaluation prior was notable for difficulties - Continue pain control - Continue ICS q1 hour while awake -Replace Eliquis with Lovenox 40 mg SQ twice daily for DVT prophylaxis While holding Eliquis in case of need for surgery (3) Atrial fibrillation: Plan: Afib- noted on loop recorder following CVA-On examIs paroxysmal atrial fibrillation She remains in sinus rhythm nation and on admitting EKG here Continue to hold Eliquis in case of need for surgery while here Continue metoprolol (4) Hyperlipidemia: Plan: No acute needs - Continue rosuvastain (5) Depression: Plan: Continue sertraline (6) Stroke: Plan: History of- no acute deficits Has some residual Cognitive issues - Holding home Eliquis for now as above-restart if no surgery to be performed -Continue statin - BP controlled (7) Constipation: Plan: No bowel movement since 02/28 Continue MiraLAX daily as needed-was given a dose today -Add on a bottle of magnesium citrate -Start docusate/senna (8) Hypokalemia: Plan: Replaced with potassium chloride 20 M EQ p.o. twice daily Follow BMP (9) DVT prophylaxis: Plan: SCD to left leg with ANA hose to left leg, Lovenox 40mg BID, hold home Eliquis in case of need for procedure Disposition-continued stay medical/surgical floor Admission and Anticipated Discharge Date Admission Date: March 04, 2021 Subjective Patient still having severe pain in the right knee despite receiving 10 mg of oxycodone a few hours ago. She started to have chills again and wishes given Tylenol. She denies chest pain or shortness of breath, no nausea or vomiting, no abdominal pain. She has not moved her bowels in 4-5 days. I discussed her care with orthopedics PA. Review of Systems Review of Systems: All systems reviewed & are unremarkable except as noted in HPI & below Physical Exam Constitutional: WD/WN, vitals as above Eyes: + anicteric sclerae Neck: trachea midline, no thyromegaly Respiratory: normal respiratory effort, lungs clear to auscultation Cardiovascular: RRR, no murmur, no edema Chest (Breasts): Chest: normal inspection of chest Gastrointestinal (Abdomen): normal bowel sounds, soft, nontender, no hepatosplenomegaly Musculoskeletal: Extremities: + limited ROM of extremities (Knee significantly reduced ROM); + extremities abnormal to inspection (RLE with diffuse edema, erythema much improved), no cyanosis and no clubbing Skin: no rashes, warm and dry Neurologic: moves all extremities and awake; no focal motor deficits Psychiatric: A+Ox3, euthymic affect Results & Data Results & Data ([facility]) Vital Signs (Past 12 Hours) Vital Signs Temp Pulse Resp BP Pulse Ox 03/05/21 12:02 37.1 C 03/05/21 07:20 37.2 C 80 16 134/71 93 Laboratory Results 03/05/21 03/05/21 03/05/21 Range/Units 07:20 07:20 05:48 WBC (4.8-10.8) K/uL RBC (4.2-5.4) M/uL Hgb (12.0-16.0) g/dL Hct (37-47) % MCV (80-100) fL MCH (25-34) pg MCHC (32-36) g/dL RDW Std Deviation (36.4-46.3) fL RDW Coeff of David (11.5-14.5) % Plt Count (130-400) K/uL MPV (7.4-10.4) fL Immature Gran % (Auto) % Neut % (Auto) % Lymph % (Auto) % [place] % (Auto) % Eos % (Auto) % Baso % (Auto) % Neut # (Auto) (1.4-6.5) K/uL Lymph # (Auto) (1.2-3.4) K/uL [place] # (Auto) (0.11-0.59) K/uL Eos # (Auto) (0-0.5) K/uL Baso # (Auto) (0-0.2) K/uL Immature Gran # (Auto) (0.00-0.02) K/uL ESR 35 H (0-30) mm/hr Sodium 140 (136-145) mmol/L Potassium 3.3 L (3.5-5.1) mmol/L Chloride 106 (98-107) mmol/L Carbon Dioxide 30 (21-32) mmol/L Anion Gap 4.0 (3-11) BUN 6 L (7-18) mg/dl Creatinine 0.66 (0.6-1.2) mg/dl Est Cr Clr Drug Dosing 75.8 ml/min Est GFR ( Amer) 98.1 ml/min Est GFR (Non-Af Amer) 84.6 ml/min BUN/Creatinine Ratio 8.7 L (10-20) Glucose 106 H (70-99) mg/dl Calcium 8.3 L (8.5-10.1) mg/dl Magnesium 1.8 (1.8-2.4) mg/dl C-Reactive Protein 6.85 H (0-0.29) mg/dl COVID-19 Eval Order SARS-CoV-2 (PCR) (Negative) 03/05/21 03/04/21 03/04/21 Range/Units 05:48 13:25 13:25 WBC 9.03 (4.8-10.8) K/uL RBC 3.23 L (4.2-5.4) M/uL Hgb 11.4 L (12.0-16.0) g/dL Hct 34.2 L (37-47) % MCV 105.9 H (80-100) fL MCH 35.3 H (25-34) pg MCHC 33.3 (32-36) g/dL RDW Std Deviation 56.2 H (36.4-46.3) fL RDW Coeff of David 14.4 (11.5-14.5) % Plt Count 157 (130-400) K/uL MPV 11.0 H (7.4-10.4) fL Immature Gran % (Auto) 0.4 % Neut % (Auto) 57.0 % Lymph % (Auto) 20.4 % [place] % (Auto) 19.2 % Eos % (Auto) 2.9 % Baso % (Auto) 0.1 % Neut # (Auto) 5.15 (1.4-6.5) K/uL Lymph # (Auto) 1.84 (1.2-3.4) K/uL [place] # (Auto) 1.73 H (0.11-0.59) K/uL Eos # (Auto) 0.26 (0-0.5) K/uL Baso # (Auto) 0.01 (0-0.2) K/uL Immature Gran # (Auto) 0.04 H (0.00-0.02) K/uL ESR (0-30) mm/hr Sodium (136-145) mmol/L Potassium (3.5-5.1) mmol/L Chloride (98-107) mmol/L Carbon Dioxide (21-32) mmol/L Anion Gap (3-11) BUN (7-18) mg/dl Creatinine (0.6-1.2) mg/dl Est Cr Clr Drug Dosing ml/min Est GFR ( Amer) ml/min Est GFR (Non-Af Amer) ml/min BUN/Creatinine Ratio (10-20) Glucose (70-99) mg/dl Calcium (8.5-10.1) mg/dl Magnesium (1.8-2.4) mg/dl C-Reactive Protein (0-0.29) mg/dl COVID-19 Eval Order Covid19 at [facility] SARS-CoV-2 (PCR) NEGATIVE (Negative) PG Care Time/CCT Total # of Minutes Spent Total Time Spent with Patient: Total time spent is greater than 50% in coordinat ion of care (as documented) at patient's floor/unit and/or counseling patient: Coding Level of Care Code 95278 Subseq Hosp Care Lvl 2 Diagnoses Acute pain of right knee M25.561 History of total right knee replacement Z96.651 Atrial fibrillation I48.91 Hyperlipidemia E78.5 Depression F32.9 Stroke I63.9 DVT prophylaxis Z29.9 Constipation K59.00 Hypokalemia E87.6
--- NOTE | 2021-03-05 13:14 | Electrocardiogram Report ---
Test Reason : Blood Pressure : / mmHG Vent. Rate : 076 BPM Atrial Rate : 076 BPM P-R Int : 152 ms QRS Dur : 080 ms QT Int : 384 ms P-R-T Axes : 009 -13 006 degrees QTc Int : 432 ms Poor data quality, interpretation may be adversely affected Normal sinus rhythm Normal ECG When compared with ECG of 23-JAN-2021 11:34, T wave inversion now evident in Inferior leads Nonspecific T wave abnormality now evident in Anterior leads Confirmed by Karthik Alberts ([id number]) on 03/05/2021 1:14:37 PM Referred By: REFERRED SELF Confirmed By:Karthik Alberts
--- NOTE | 2021-03-05 19:45 | Orthopedic Consultation ---
Date of Consultation March 05, 2021 Assessment & Plan (1) Painful total knee replacement, right: at this point, will continue with observation, IV Abx, she is currently on Vancomycin and received Levaquin in the ER. she was discharged on PO Clindamycin for routine post op prophylaxis. cont with relative rest and ice. the redness that she had marked out from the ER appears significantly improved upon my examination. she has quite a bit of swelling to her lower extremity, her US was negative for DVT. re-educated her on the importance of elevation and ice. her blood cx are pending and UA negative. agree with current pain regimen. Her CBC has trended down since surgery, 18.00 on POD #1 and 9.03 today. baseline ESR today at 35 and CRP 6.85. will continue with observation, IV abx and recheck in the am. patient care discussed with Dr Cordova as well. History of Present Illness Reason for Consultation: right knee pain s/p Right TKA Attending Physician: Griselda Franklin MD History of Present Illness Sabrina is a 80 year old female who underwent right total knee arthroplasty by Dr Martell on 03/01/21. she tolerated the procedure well and was discharged to home on pod#1 with HHPT. since going home, she has had increased pain, swelling in her knee as well as occasional chills. she is concerned that she is not able to get around and use her walker secondary to the pain. she denies any injuries or trauma to the knee since going home. pain upon admission 03/28. Allergies Allergy/AdvReac Type Severity Reaction Status Date / Time amoxicillin Allergy Mild Rash Verified 03/04/21 09:11 celecoxib [From Celebrex] Allergy Mild Rash Verified 03/04/21 09:11 latex Allergy Mild Rash Verified 03/04/21 09:11 Sulfa (Sulfonamide Allergy Mild Rash Verified 03/04/21 09:11 Antibiotics) valdecoxib [From Bextra] Allergy Mild Rash Verified 03/04/21 09:11 tramadol Allergy Unknown Unknown Verified 03/04/21 09:11 reaction Home Medications Medication Instructions Recorded Confirmed Type apixaban 5 mg tablet (Eliquis) 5 mg PO BID 01/19/21 03/04/21 History baclofen 10 mg tablet 10 mg PO HS 01/19/21 03/04/21 History cyanocobalamin (vitamin B-12) 1,000 mcg PO QAM 01/19/21 03/04/21 History 1,000 mcg capsule docusate sodium 100 mg capsule 100 mg PO DAILY PRN 01/19/21 03/04/21 History (Stool Softener) ergocalciferol (vitamin D2) 1,250 1,250 mcg PO WK 01/19/21 03/04/21 History mcg (50,000 unit) capsule (Vitamin D2) metoprolol succinate 25 mg 25 mg PO HS 01/19/21 03/04/21 History tablet,extended release 24 hr rosuvastatin 10 mg tablet 10 mg PO HS 01/19/21 03/04/21 History sertraline 50 mg tablet 50 mg PO HS 01/19/21 03/04/21 History acetaminophen 500 mg tablet 1,000 mg PO Q8 21 Days #126 tab 03/02/21 03/04/21 Rx (Tylenol Extra Strength) clindamycin HCl 300 mg capsule 300 mg PO TID 7 Days #21 cap 03/02/21 03/04/21 Rx oxycodone 5 mg tablet 5 - 10 mg PO Q6H PRN #30 tab 03/02/21 03/04/21 Rx Patient History Medical History Atrial fibrillation Paroxysmal, follows with Dr. 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 Surgical History History of appendectomy History of arthroscopy Left knee History of cataract surgery R/L History of tonsillectomy History of tooth extraction Family History Other No family history of adverse response to anesthesia Social History Smoking Status: Never smoker Second Hand Exposure: Yes ( A CHILD); Hx Alcohol Use: Yes Alcohol type: hard liquor Hx Substance Use: No Preferred Language: Sri [place]ankan Communication Ability: Effective Metal Model Maker Required: No Beliefs That Will Affect Care: Baptism Baptism Beliefs: Gnosticism - no Blood transfusion marital status: Current Living Situation: Spouse Current Living Situation Comment: Feels Safe at Home: No Would You Like to Speak to Someone About Your Situation: No Safety Concerns: Afraid for Others in Home Assistive Devices: Denture - Upper and Glasses Review of Systems Constitutional: as per Subjective / HPI Physical Exam Physical Exam: Vital Signs Temp Pulse Resp BP Pulse Ox 03/05/21 14:36 36.8 C 71 16 128/67 92 03/05/21 12:02 37.1 C 03/05/21 07:20 37.2 C 80 16 134/71 93 03/04/21 22:04 37.2 C 84 16 137/69 91 Intake and Output 03/05/21 03/05/21 03/05/21 06:59 14:59 22:59 Intake Total 1167.333 / 3612.33 3 370 / 370 Output Total 600 / 965 1100 / 1750 650 / 1750 Balance 567.333 / 2647.333 -1100 / -1380 -280 / -1380 Intake: IV 1167.333 / 2862.33 3 270 / 270 Lactated Ringe r's 1,000 ml @ 80 897.333 / 897.333 mls/hr IV .Q12 H30M OSBALDO Rx#: [id number] Vancomycin HCl 1,000 mg In 270 / 270 270 / 270 Sodium Chlorid e 0.9% 250 ml @ 125 mls/hr IV Q12H OSBALDO Rx#: [id number] Oral 100 / 100 Output: Urine Amount (Ca theter) 600 / 875 1100 / 1750 650 / 1750 External 600 / 875 1100 / 1750 650 / 1750 Other: # Unmeasured Voi ds 1 Constitutional: well developed and well nourished Musculoskeletal: right knee: I removed MAY dressing. skin edges well approxim ated, there is no active drainage. her calf is SNT. she is able to wiggle toes/ankle without pain. negative anthony. she has diffuse tenderness to the knee. thigh is soft, non-tender. gentle PROM no pain but pain with any attempt of active ROM. moderate lower leg swelling is present. DP palpable. Results & Data ([facility]) Vital Signs (Past 12 Hours) Vital Signs Temp Pulse Resp BP Pulse Ox 03/05/21 14:36 36.8 C 71 16 128/67 92 03/05/21 12:02 37.1 C Laboratory Results Laboratory Results WBC 9.03 K/uL (4.8-10.8) 03/05/21 05:48 RBC 3.23 M/uL (4.2-5.4) L 03/05/21 05:48 Hgb 11.4 g/dL (12.0-16.0) L 03/05/21 05:48 Hct 34.2 % (37-47) L 03/05/21 05:48 MCV 105.9 fL (80-100) H 03/05/21 05:48 MCH 35.3 pg (25-34) H 03/05/21 05:48 MCHC 33.3 g/dL (32-36) 03/05/21 05:48 RDW Std Deviation 56.2 fL (36.4-46.3) H 03/05/21 05:48 RDW Coeff of David 14.4 % (11.5-14.5) 03/05/21 05:48 Plt Count 157 K/uL (130-400) 03/05/21 05:48 MPV 11.0 fL (7.4-10.4) H 03/05/21 05:48 Immature Gran % (Auto) 0.4 % 03/05/21 05:48 Neut % (Auto) 57.0 % 03/05/21 05:48 Lymph % (Auto) 20.4 % 03/05/21 05:48 [place] % (Auto) 19.2 % 03/05/21 05:48 Eos % (Auto) 2.9 % 03/05/21 05:48 Baso % (Auto) 0.1 % 03/05/21 05:48 Neut # (Auto) 5.15 K/uL (1.4-6.5) 03/05/21 05:48 Lymph # (Auto) 1.84 K/uL (1.2-3.4) 03/05/21 05:48 [place] # (Auto) 1.73 K/uL (0.11-0.59) H 03/05/21 05:48 Eos # (Auto) 0.26 K/uL (0-0.5) 03/05/21 05:48 Baso # (Auto) 0.01 K/uL (0-0.2) 03/05/21 05:48 Immature Gran # (Auto) 0.04 K/uL (0.00-0.02) H 03/05/21 05:48 ESR 35 mm/hr (0-30) H 03/05/21 07:20 PT 10.5 Seconds (9.0-12.0) 03/04/21 09:40 INR 1.0 (0.9-1.1) 03/04/21 09:40 APTT 24.6 Seconds (21.0-31.0) 03/04/21 09:40 PTT Ratio 0.9 03/04/21 09:40 Sodium 140 mmol/L (136-145) 03/05/21 05:48 Potassium 3.3 mmol/L (3.5-5.1) L 03/05/21 05:48 Chloride 106 mmol/L (98-107) 03/05/21 05:48 Carbon Dioxide 30 mmol/L (21-32) 03/05/21 05:48 Anion Gap 4.0 (3-11) 03/05/21 05:48 BUN 6 mg/dl (7-18) L 03/05/21 05:48 Creatinine 0.66 mg/dl (0.6-1.2) 03/05/21 05:48 Est Cr Clr Drug Dosing 75.8 ml/min 03/05/21 05:48 Est GFR ( Amer) 98.1 ml/min 03/05/21 05:48 Est GFR (Non-Af Amer) 84.6 ml/min 03/05/21 05:48 BUN/Creatinine Ratio 8.7 (10-20) L 03/05/21 05:48 Glucose 106 mg/dl (70-99) H 03/05/21 05:48 Lactate 1.2 mmol/L (0.4-2.0) 03/04/21 09:40 Calcium 8.3 mg/dl (8.5-10.1) L 03/05/21 05:48 Magnesium 1.8 mg/dl (1.8-2.4) 03/05/21 05:48 Total Bilirubin 0.8 mg/dl (0.2-1) 03/04/21 09:40 AST 36 U/L (15-37) 03/04/21 09:40 ALT 30 U/L (12-78) 03/04/21 09:40 Alkaline Phosphatase 72 U/L (45-117) 03/04/21 09:40 C-Reactive Protein 6.85 mg/dl (0-0.29) H 03/05/21 07:20 Total Protein 7.3 gm/dl (6.4-8.2) 03/04/21 09:40 Albumin 3.2 gm/dl (3.4-5.0) L 03/04/21 09:40 Globulin 4.1 gm/dl (2.5-4.0) H 03/04/21 09:40 Albumin/Globulin Ratio 0.8 (0.9-2) L 03/04/21 09:40 Procalcitonin < 0.05 ng/ml (0-0.5) 03/04/21 09:40 Urine Color Yellow 03/04/21 10:30 Urine Appearance Clear (Clear) 03/04/21 10:30 Urine pH 5.0 (4.5-7.5) 03/04/21 10:30 Ur Specific Jay Em 1.018 (1.000-1.030) 03/04/21 10:30 Urine Protein Negative (Negative) 03/04/21 10:30 Urine Glucose (UA) Negative (Negative) 03/04/21 10:30 Urine Ketones Negative (Negative) 03/04/21 10:30 Urine Blood Negative (Negative) 03/04/21 10:30 Urine Nitrite Negative (Negative) 03/04/21 10:30 Urine Bilirubin Negative (Negative) 03/04/21 10:30 Urine Urobilinogen Negative (Negative) 03/04/21 10:30 Ur Leukocyte Esterase Negative (Negative) 03/04/21 10:30 COVID-19 Eval Order Covid19 at [facility] 03/04/21 13:25 SARS-CoV-2 (PCR) NEGATIVE (Negative) 03/04/21 13:25 Impressions Chest X-Ray 03/04/21 08:52 XR chest 1V portable HISTORY: SEPSIS COMPARISON: Chest 01/23/2021. FINDINGS: No pneumothorax. No pleural effusions. The cardiac silhouette remains mildly enlarged. No new focal lung consolidations to suggest pneumonia. No evidence for pulmonary edema. IMPRESSION: No significant change compared to the prior study. No acute process. ACT 112: Negative or not required by law. Electronically signed by: Barrett Avila M.D. 03/04/2021 9:40 AM Knee X-Ray 03/04/21 08:52 XR knee RT 1 or 2V routine CLINICAL HISTORY: knee pain/redness/recent arthroplasty COMPARISON STUDY: Right knee radiographs 03/01/2021. FINDINGS: There is again noted a right total knee arthroplasty. The hardware is intact. No fracture or dislocation. Skin micah are in place. There is anterior soft tissue swelling and a small knee effusion. IMPRESSION: 1. Right total knee arthroplasty. 2. No fractures. 3. Anterior soft tissue swelling and a small right knee effusion. ACT 112: Negative or not required by law. Electronically signed by: Barrett Avila M.D. 03/04/2021 9:56 AM Venous Doppler Study 03/04/21 14:00 RIGHT LOWER EXTREMITY VENOUS DOPPLER HISTORY: Right leg swelling. evaluate DVT post op COMPARISON STUDY: None. FINDINGS: There is normal compressibility, flow, and augmentation within the right lower extremity deep venous system. IMPRESSION: No DVT within the right lower extremity ACT 112: Negative or not required by law. Electronically signed by: Barrett Avila M.D. 03/05/2021 8:14 AM
[2021-03-05] MEDS: BACLOFEN 10 MG TAB PO SCH (20:38)
[2021-03-05] MEDS: METOPROLOL SUCC 25MG EXT REL TAB PO SCH (20:39)
[2021-03-05] MEDS: ROSUVASTATIN CALCIUM 10 MG TAB PO SCH (20:40)
[2021-03-05] MEDS: SERTRALINE HCL 50 MG TABLET PO SCH (20:40)
[2021-03-06] MEDS: oxyCODONE HCL IR 5 MG TAB (IMMEDIATE RELEASE) PO PRN (06:24)
[2021-03-06] MEDS: DOCUSATE SODIUM/SENNA 50/8.6MG TAB PO SCH (07:38)
[2021-03-06] MEDS: POLYETHYLENE (MIRALAX) 17 GM PACK PO SCH (07:38)
[2021-03-06 07:41] LABS: Basophils # (auto) 0.02 K/uL (0-0.2); Basophils % (auto) 0.2 %; Eosinophils % (auto) 3.1 %; Hematocrit (blood only) 37.6 % (37-47); Hemoglobin 12.6 g/dL (12.0-16.0); Immature Granulocytes # (auto) 0.03 K/uL (0.00-0.02); Immature Granulocytes % (auto) 0.3 %; Lymphocytes # (auto) 1.35 K/uL (1.2-3.4); Lymphocytes % (auto) 14.1 %; Mean Corpuscular Hemoglobin 35.8 pg (25-34); Mean Corpuscular Hgb Conc 33.5 g/dL (32-36); Mean Corpuscular Volume 106.8 fL (80-100); Mean Platelet Volume 10.8 fL (7.4-10.4); Monocytes # (auto) 1.66 K/uL (0.11-0.59); Monocytes % (auto) 17.3 %; Neutrophils # (auto) 6.23 K/uL (1.4-6.5); Platelet Count 179 K/uL (130-400); RDW Coefficient of Variation 14.2 % (11.5-14.5); RDW Standard Deviation 55.3 fL (36.4-46.3); Red Blood Count 3.52 M/uL (4.2-5.4); White Blood Count 9.59 K/uL (4.8-10.8)
[2021-03-06] MEDS: ACETAMINOPHEN 325 MG TAB PO PRN (07:55)
[2021-03-06 08:18] LABS: BUN Creatinine Ratio 9.6 (10-20); Calcium 8.5 mg/dl (8.5-10.1); Creatinine Clr Calc Pharmacy 74.7 ml/min; Est GFR (African American) 97.6 ml/min; Est GFR (Non-African American) 84.2 ml/min; Magnesium 2.2 mg/dl (1.8-2.4); Potassium 3.5 mmol/L (3.5-5.1)
[2021-03-06] MEDS ORDERED: KETOROLAC TROMETHAMINE 15 MG/ML VIAL IV ONE (08:36)
[2021-03-06] MEDS: CYANOCOBALAMIN 500 MCG TABLET (VITAMIN B-12) PO SCH (09:11)
[2021-03-06] MEDS: POTASSIUM CHLORIDE CRTAB 20 MEQ TABCR PO SCH ×2 (09:11→22:32)
[2021-03-06] MEDS: ENOXAPARIN INJ 40 MG/0.4 ML SYR SQ SCH ×2 (09:12→22:30)
[2021-03-06] MEDS: LACTATED RINGER'S 1,000 ML IV SCH (10:44)
[2021-03-06] MEDS ORDERED: VANCOMYCIN TROUGH ONE (11:30)
--- NOTE | 2021-03-06 12:41 | Pharmacy Report ---
Pharmacy Abx Dose Short Note - Date of Service March 06, 2021 - Assessment & Plan Assessment 80 year old F receiving vancomycin for knee infection ; s/p knee arthroplasty Day # 3 of antimicrobial therapy. Plan Vancomycin * Trough level came back therapeutic at ~15 mcg/ml * Plan to continue same vancomycin dosing of 1000 mg iv q 12 hr dosing * Blood cultures are no growth. Renal function remains stable at this time Pharmacy will continue to follow and will adjust dose/frequency as necessary. Thank you.
[2021-03-06] MEDS: VANCOMYCIN HCL 1,000 MG in SODIUM CHLORIDE 0.9% 250 ML IV SCH ×2 (12:53→22:50)
--- NOTE | 2021-03-06 16:09 | Hospitalist Progress Note ---
Date of Service March 06, 2021 Assessment & Plan (1) Acute pain of right knee: Plan: S/P right knee arthroplasty On 03/01 And presents with significant right knee pain, swelling, and erythema on postop day #3 along with fever and leukocytosis - possibility of surrounding soft tissue infection- warm, erythema, swelling Appears significantly improved since starting on IV antibiotics-Less erythema and leukocytosis improved, but still having chills today With severe edema noted, venous Doppler obtained and was negative for DVT -Continue Tylenol as needed good response to Toradol 15mg IV today, will continue q6 PRN for pain/anti- inflammatory effect -Continue ICE PRN -Continue Vancomycin for time being, do not suspect intra-articular infection -Blood cultures pending, urine negative - Monitor fever curve - Orthopaedics consulted-Plan is continued ice, antibiotics, and observation stop IV fluids today (2) History of total right knee replacement: Plan: As above - Will likely need rehab facility post discharge as - PT evaluation prior was notable for difficulties - Continue pain control - Continue ICS q1 hour while awake -Replace Eliquis with Lovenox 40 mg SQ twice daily for DVT prophylaxis While holding Eliquis in case of need for surgery resume Eliquis on discharge (3) Atrial fibrillation: Plan: Afib- noted on loop recorder following CVA-On examIs paroxysmal atrial fibrillation She remains in sinus rhythm nation and on admitting EKG here Continue to hold Eliquis in case of need for surgery while here Continue metoprolol, Lovenox (4) Hyperlipidemia: Plan: No acute needs - Continue rosuvastain (5) Depression: Plan: Continue sertraline (6) Stroke: Plan: History of- no acute deficits Has some residual Cognitive issues - Holding home Eliquis for now as above-restart if no surgery to be performed -Continue statin - BP controlled (7) Constipation: Plan: Continue MiraLAX daily as needed -Start docusate/senna (8) Hypokalemia: Plan: Replaced with potassium chloride 20 M EQ p.o. twice daily Follow BMP - K 3.5 today (9) DVT prophylaxis: Plan: SCD to left leg with ANA hose to left leg, Lovenox 40mg BID, hold home Eliquis in case of need for procedure Disposition-continued stay medical/surgical floor Admission and Anticipated Discharge Date Admission Date: March 04, 2021 Subjective patient had some more pain relief with Toradol 15mg IV this morning had a reported allergy with NSAIDs in the past but it was a mild rash, will continue to watch for any rash eating well, breathing well, no chest pain, no fever appreciate orthopedic consult -- recommend ice, elevation, Vanco, trend WBC, doubt joint infection at this time patient agrees to going to SNF for pain control, rehab once she is a little bit more improved Review of Systems Review of Systems: All systems reviewed & are unremarkable except as noted in Subjective Musculoskeletal: + joint pain (right knee, moderate to severe), + swelling (right knee) and + limited range of motion (right knee); no back pain and no neck pain Physical Exam Constitutional: WD/WN, vitals as above no acute distress Neck: trachea midline, no thyromegaly Respiratory: normal respiratory effort, lungs clear to auscultation Cardiovascular: RRR, no murmur, no edema Gastrointestinal (Abdomen): normal bowel sounds, soft, nontender, no hepatosplenomegaly Musculoskeletal: Spine: thoracic spine normal to inspection and lumbar spine normal to inspection Extremities: + extremities abnormal to inspection (right knee swollen, tender) Skin: no rashes, warm and dry Neurologic: patellar DTR's 2+ bilat, sensation intact and PERRL, EOMI, accommodation nl, no face palsy, no dysarthria Psychiatric: A+Ox3, euthymic affect Results & Data Results & Data ([facility]) Vital Signs (Past 12 Hours) Vital Signs Temp Pulse Pulse Pulse Resp BP Pulse Ox 03/06/21 15:38 36.9 C 79 16 145/73 H 93 03/06/21 10:45 78 123/67 03/06/21 07:38 36.6 C 78 18 177/83 H 92 03/06/21 06:13 37.2 C 83 16 178/80 H 93 Laboratory Results Laboratory Results - last 24 hr 03/06/21 03/06/21 03/06/21 07:29 07:29 11:26 WBC 9.59 RBC 3.52 L Hgb 12.6 Hct 37.6 MCV 106.8 H MCH 35.8 H MCHC 33.5 RDW Std Deviation 55.3 H RDW Coeff of David 14.2 Plt Count 179 MPV 10.8 H Immature Gran % (Auto) 0.3 Neut % (Auto) 65.0 Lymph % (Auto) 14.1 [place] % (Auto) 17.3 Eos % (Auto) 3.1 Baso % (Auto) 0.2 Neut # (Auto) 6.23 Lymph # (Auto) 1.35 [place] # (Auto) 1.66 H Eos # (Auto) 0.30 Baso # (Auto) 0.02 Immature Gran # (Auto) 0.03 H Sodium 138 Potassium 3.5 Chloride 104 Carbon Dioxide 27 Anion Gap 7.0 BUN 6 L Creatinine 0.67 Est Cr Clr Drug Dosing 74.7 Est GFR ( Amer) 97.6 Est GFR (Non-Af Amer) 84.2 BUN/Creatinine Ratio 9.6 L Glucose 112 H Calcium 8.5 Magnesium 2.2 Vancomycin Trough 15.0 Medications Administered Current Inpatient Medications Acetaminophen (Acetaminophen 325 Mg Tab) 650 mg PO Q4H PRN PRN Reason: pain/fever Stop: 04/03/21 16:46 Last Admin: 03/06/21 07:55 Dose: 650 mg Documented by: Baclofen (Baclofen 10 Mg Tab) 10 mg PO HS OSBALDO Stop: 04/03/21 20:59 Last Admin: 03/05/21 20:38 Dose: 10 mg Documented by: Cyanocobalamin (Cyanocobalamin 500 Mcg Tablet (Vitamin B-12)) 1,000 mcg PO QAM OSBALDO Stop: 04/04/21 08:59 Last Admin: 03/06/21 09:11 Dose: 1,000 mcg Documented by: Enoxaparin Sodium (Enoxaparin Inj 40 Mg/0.4 Ml Syr) 40 mg SQ Q12 OSBALDO Stop: 04/03/21 20:59 Last Admin: 03/06/21 09:12 Dose: 40 mg Documented by: Ergocalciferol (Ergocalciferol 50,000 Units 1250 Mcg Cap) 50,000 units PO We@0900 [facility] Stop: 04/07/21 08:59 Hydromorphone HCl (Hydromorphone Inj 0.5 Mg/0.5 Ml Syr) 0.5 mg IV Q4 PRN PRN Reason: severe breakthrough pain Stop: 03/19/21 12:03 Last Admin: 03/05/21 12:12 Dose: 0.5 mg Documented by: Vancomycin HCl 1,000 mg/ (Sodium Chloride) 270 mls @ 125 mls/hr IV Q12H OSBALDO; Protocol Stop: 03/11/21 11:59 Last Infusion: 03/06/21 15:11 Dose: Infused Documented by: Ketorolac Tromethamine (Ketorolac Tromethamine 15 Mg/Ml Vial) 15 mg IV Q6H PRN PRN Reason: Pain Stop: 03/11/21 13:02 Metoprolol Succinate (Metoprolol Succ 25mg Ext Rel Tab) 25 mg PO [facility] Stop: 04/03/21 20:59 Last Admin: 03/05/21 20:39 Dose: 25 mg Documented by: Miscellaneous Information (Vancomycin Consult Active) 1 ea N/A UD PRN PRN Reason: Consult Stop: 04/03/21 16:46 Ondansetron HCl (Ondansetron Inj 2 Mg/Ml 2 Ml Vial) 4 mg IV Q6H PRN PRN Reason: Nausea Stop: 04/03/21 16:46 Oxycodone HCl (Oxycodone Hcl Ir 5 Mg Tab (Immediate Release)) 5 - 10 mg PO Q6H PRN PRN Reason: pain Stop: 03/18/21 16:46 Last Admin: 03/06/21 06:24 Dose: 10 mg Documented by: Polyethylene Glycol (Polyethylene (Miralax) 17 Gm Pack) 17 gm PO DAILY [facility] Stop: 04/05/21 08:59 Last Admin: 03/06/21 07:38 Dose: Not Given Documented by: Potassium Chloride (Potassium Chloride Crtab 20 Meq Tabcr) 20 meq PO BID [facility] Stop: 04/03/21 20:59 Last Admin: 03/06/21 09:11 Dose: 20 meq Documented by: Rosuvastatin Calcium (Rosuvastatin Calcium 10 Mg Tab) 10 mg PO HS [facility] Stop: 04/03/21 20:59 Last Admin: 03/05/21 20:40 Dose: 10 mg Documented by: Senna/Docusate Sodium (Docusate Sodium/Senna 50/8.6mg Tab) 1 tab PO QAM [facility] Stop: 04/05/21 08:59 Last Admin: 03/06/21 07:38 Dose: Not Given Documented by: Sertraline HCl (Sertraline Hcl 50 Mg Tablet) 50 mg PO [facility] Stop: 04/03/21 20:59 Last Admin: 03/05/21 20:40 Dose: 50 mg Documented by: PG Care Time/CCT Total # of Minutes Spent Total Time Spent with Patient: Total time spent is greater than 50% in coordination of care (as documented) at patient's floor/unit and/or counseling patient: Coding Level of Care Code 34391 Subseq Hosp Care Lvl 2 Diagnoses Acute pain of right knee M25.561 History of total right knee replacement Z96.651 Atrial fibrillation I48.91 Hyperlipidemia E78.5 Depression F32.9 Stroke I63.9 Constipation K59.00 Hypokalemia E87.6 DVT prophylaxis Z29.9
--- NOTE | 2021-03-06 17:57 | Orthopedic Progress Note ---
Date of Service March 06, 2021 Assessment & Plan (1) Painful total knee replacement, right: Plan: Continue with observation, IV Abx, she is currently on Vancomycin and received Levaquin in the ER. Cont with relative rest and ice. US was negative for DVT. Continue strict elevation and ice. Continue with observation, IV abx and recheck in the am. Admission and Anticipated Discharge Date Admission Date: March 04, 2021 Subjective Continue sparing use of Toradol . had a reported allergy with NSAIDs in the past but it was a mild rash, will co ntinue to watch for any rash No significant pain today,no chest pain, no fever Has had success with ice, elevation, Vanco, trend WBC Continue goal of advancing to SNF for continued management. Physical Exam Musculoskeletal: Right knee status post total knee arthroplasty with midline incision. Incision appears benign. Erythema and symmetric lower extremity edema with venous stasis changes persists however is improving compared to yesterday. Active and passive range of motion of the right knee is steadily improving. No streaking or redness is appreciated proximal to the knee. No fluctuance noted. Distal pulses intact. Distal sensation intact bilateral lower extremities. Skin: Right knee micah intact. No significant periwound changes. Results & Data ([facility]) Vital Signs (Past 12 Hours) Vital Signs Temp Pulse Pulse Pulse Resp BP Pulse Ox 03/06/21 15:38 36.9 C 79 16 145/73 H 93 03/06/21 10:45 78 123/67 03/06/21 07:38 36.6 C 78 18 177/83 H 92 03/06/21 06:13 37.2 C 83 16 178/80 H 93
[2021-03-06] MEDS: SERTRALINE HCL 50 MG TABLET PO SCH (22:32)
[2021-03-06] MEDS: KETOROLAC TROMETHAMINE 15 MG/ML VIAL IV PRN (22:38)
[2021-03-06] MEDS: METOPROLOL SUCC 25MG EXT REL TAB PO SCH (22:39)
[2021-03-06] MEDS: ROSUVASTATIN CALCIUM 10 MG TAB PO SCH (22:39)
[2021-03-06] MEDS: BACLOFEN 10 MG TAB PO SCH (22:40)
[2021-03-07 08:13] LABS: Basophils # (auto) 0.02 K/uL (0-0.2); Basophils % (auto) 0.2 %; Eosinophils % (auto) 4.9 %; Hematocrit (blood only) 34.5 % (37-47); Hemoglobin 11.5 g/dL (12.0-16.0); Immature Granulocytes # (auto) 0.04 K/uL (0.00-0.02); Immature Granulocytes % (auto) 0.5 %; Lymphocytes % (auto) 17.3 %; Mean Corpuscular Hemoglobin 35.4 pg (25-34); Mean Corpuscular Hgb Conc 33.3 g/dL (32-36); Mean Corpuscular Volume 106.2 fL (80-100); Mean Platelet Volume 11.1 fL (7.4-10.4); Monocytes % (auto) 18.5 %; Neutrophils # (auto) 4.75 K/uL (1.4-6.5); Neutrophils % (auto) 58.6 %; Platelet Count 169 K/uL (130-400); RDW Coefficient of Variation 14.3 % (11.5-14.5); RDW Standard Deviation 55.5 fL (36.4-46.3); Red Blood Count 3.25 M/uL (4.2-5.4); White Blood Count 8.11 K/uL (4.8-10.8)
[2021-03-07 08:23] LABS: BUN Creatinine Ratio 9.8 (10-20); Calcium 8.4 mg/dl (8.5-10.1); Creatinine Clr Calc Pharmacy 75.8 ml/min; Est GFR (African American) 98.1 ml/min; Est GFR (Non-African American) 84.6 ml/min; Magnesium 2.4 mg/dl (1.8-2.4); Potassium 3.5 mmol/L (3.5-5.1)
[2021-03-07] MEDS: CYANOCOBALAMIN 500 MCG TABLET (VITAMIN B-12) PO SCH (08:57)
[2021-03-07] MEDS: POTASSIUM CHLORIDE CRTAB 20 MEQ TABCR PO SCH ×2 (08:57→22:28)
[2021-03-07] MEDS: DOCUSATE SODIUM/SENNA 50/8.6MG TAB PO SCH (08:57)
[2021-03-07] MEDS: POLYETHYLENE (MIRALAX) 17 GM PACK PO SCH ×2 (08:57→09:16)
[2021-03-07] MEDS: KETOROLAC TROMETHAMINE 15 MG/ML VIAL IV PRN (09:49)
[2021-03-07] MEDS: ENOXAPARIN INJ 40 MG/0.4 ML SYR SQ SCH ×2 (09:50→21:15)
[2021-03-07] MEDS: oxyCODONE HCL IR 5 MG TAB (IMMEDIATE RELEASE) PO PRN ×3 (10:55→22:15)
--- NOTE | 2021-03-07 11:52 | Orthopedic Progress Note ---
Date of Service March 07, 2021 Assessment & Plan (1) Painful total knee replacement, right: Plan: Continue with observation, she seems to be responding well to the IV Abx and ice/elevation. Patient seen with Dr Martell, no surgery indicated at that time. recommend continuation of conservative measures. patient would benefit from rehab stay, CM currently looking into [facility]. Patient can be discharged from ortho standpoint, she has a f/u next week [facility] for staple [facility]. cont with current pain regimen Admission and Anticipated Discharge Date Admission Date: March 04, 2021 Subjective POD #6 s/p Right TKA Review of Systems Constitutional: no fever and no chills Cardiovascular: no chest pain Gastrointestinal: no nausea and no vomiting Physical Exam Physical Exam: Vital Signs Temp Pulse Pulse Resp BP BP Pulse Ox 03/07/21 07:51 36.7 C 101 H 16 133/68 95 03/06/21 22:28 36.6 C 98 H 18 142/64 H 96 03/06/21 15:38 36.9 C 79 16 145/73 H 93 Intake and Output 03/06/21 03/07/21 03/07/21 22:59 06:59 14:59 Intake Total 270 / 1526.667 370 / 1526.667 Output Total Balance 270 / 1525.667 369 / 1525.667 Intake: IV 270 / 1426.667 270 / 1426.667 Vancomycin HCl 1,000 mg In 270 / 540 270 / 540 Sodium Chlorid e 0.9% 250 ml @ 125 mls/hr IV Q12H [facility] Rx#: [id number] Oral 100 / 100 Output: # Bowel Movement s Other: # Unmeasured Voi ds 1 1 # Urine Diapers 1 Constitutional: WD/WN, vitals as above Musculoskeletal: Right Knee: NVDI, calf SNT, negative anthony sign. DP palpable, able to wiggle toes/ankle movement without difficulty. Incision is clean and dry, well approximated with micah. no drainage, no increase in erythema. Results & Data ([facility]) Vital Signs (Past 12 Hours) Vital Signs Temp Pulse Resp BP Pulse Ox 03/07/21 07:51 36.7 C 101 H 16 133/68 95 Laboratory Results Laboratory Results WBC 8.11 K/uL (4.8-10.8) 03/07/21 07:20 RBC 3.25 M/uL (4.2-5.4) L 03/07/21 07:20 Hgb 11.5 g/dL (12.0-16.0) L 03/07/21 07:20 Hct 34.5 % (37-47) L 03/07/21 07:20 MCV 106.2 fL (80-100) H 03/07/21 07:20 MCH 35.4 pg (25-34) H 03/07/21 07:20 MCHC 33.3 g/dL (32-36) 03/07/21 07:20 RDW Std Deviation 55.5 fL (36.4-46.3) H 03/07/21 07:20 RDW Coeff of David 14.3 % (11.5-14.5) 03/07/21 07:20 Plt Count 169 K/uL (130-400) 03/07/21 07:20 MPV 11.1 fL (7.4-10.4) H 03/07/21 07:20 Immature Gran % (Auto) 0.5 % 03/07/21 07:20 Neut % (Auto) 58.6 % 03/07/21 07:20 Lymph % (Auto) 17.3 % 03/07/21 07:20 [place] % (Auto) 18.5 % 03/07/21 07:20 Eos % (Auto) 4.9 % 03/07/21 07:20 Baso % (Auto) 0.2 % 03/07/21 07:20 Neut # (Auto) 4.75 K/uL (1.4-6.5) 03/07/21 07:20 Lymph # (Auto) 1.40 K/uL (1.2-3.4) 03/07/21 07:20 [place] # (Auto) 1.50 K/uL (0.11-0.59) H 03/07/21 07:20 Eos # (Auto) 0.40 K/uL (0-0.5) 03/07/21 07:20 Baso # (Auto) 0.02 K/uL (0-0.2) 03/07/21 07:20 Immature Gran # (Auto) 0.04 K/uL (0.00-0.02) H 03/07/21 07:20 ESR 35 mm/hr (0-30) H 03/05/21 07:20 PT 10.5 Seconds (9.0-12.0) 03/04/21 09:40 INR 1.0 (0.9-1.1) 03/04/21 09:40 APTT 24.6 Seconds (21.0-31.0) 03/04/21 09:40 PTT Ratio 0.9 03/04/21 09:40 Sodium 140 mmol/L (136-145) 03/07/21 07:20 Potassium 3.5 mmol/L (3.5-5.1) 03/07/21 07:20 Chloride 108 mmol/L (98-107) H 03/07/21 07:20 Carbon Dioxide 28 mmol/L (21-32) 03/07/21 07:20 Anion Gap 4.0 (3-11) 03/07/21 07:20 BUN 7 mg/dl (7-18) 03/07/21 07:20 Creatinine 0.66 mg/dl (0.6-1.2) 03/07/21 07:20 Est Cr Clr Drug Dosing 75.8 ml/min 03/07/21 07:20 Est GFR ( Amer) 98.1 ml/min 03/07/21 07:20 Est GFR (Non-Af Amer) 84.6 ml/min 03/07/21 07:20 BUN/Creatinine Ratio 9.8 (10-20) L 03/07/21 07:20 Glucose 95 mg/dl (70-99) 03/07/21 07:20 Lactate 1.2 mmol/L (0.4-2.0) 03/04/21 09:40 Calcium 8.4 mg/dl (8.5-10.1) L 03/07/21 07:20 Magnesium 2.4 mg/dl (1.8-2.4) 03/07/21 07:20 Total Bilirubin 0.8 mg/dl (0.2-1) 03/04/21 09:40 AST 36 U/L (15-37) 03/04/21 09:40 ALT 30 U/L (12-78) 03/04/21 09:40 Alkaline Phosphatase 72 U/L (45-117) 03/04/21 09:40 C-Reactive Protein 6.85 mg/dl (0-0.29) H 03/05/21 07:20 Total Protein 7.3 gm/dl (6.4-8.2) 03/04/21 09:40 Albumin 3.2 gm/dl (3.4-5.0) L 03/04/21 09:40 Globulin 4.1 gm/dl (2.5-4.0) H 03/04/21 09:40 Albumin/Globulin Ratio 0.8 (0.9-2) L 03/04/21 09:40 Procalcitonin < 0.05 ng/ml (0-0.5) 03/04/21 09:40 Urine Color Yellow 03/04/21 10:30 Urine Appearance Clear (Clear) 03/04/21 10:30 Urine pH 5.0 (4.5-7.5) 03/04/21 10:30 Ur Specific [place] 1.018 (1.000-1.030) 03/04/21 10:30 Urine Protein Negative (Negative) 03/04/21 10:30 Urine Glucose (UA) Negative (Negative) 03/04/21 10:30 Urine Ketones Negative (Negative) 03/04/21 10:30 Urine Blood Negative (Negative) 03/04/21 10:30 Urine Nitrite Negative (Negative) 03/04/21 10:30 Urine Bilirubin Negative (Negative) 03/04/21 10:30 Urine Urobilinogen Negative (Negative) 03/04/21 10:30 Ur Leukocyte Esterase Negative (Negative) 03/04/21 10:30 Vancomycin Trough 15.0 mcg/ml (See Comment) 03/06/21 11:26 COVID-19 Eval Order Covid19 at [facility] 03/04/21 13:25 SARS-CoV-2 (PCR) NEGATIVE (Negative) 03/04/21 13:25 Impressions Chest X-Ray 03/04/21 08:52 XR chest 1V portable HISTORY: SEPSIS COMPARISON: Chest 01/23/2021. FINDINGS: No pneumothorax. No pleural effusions. The cardiac silhouette remains mildly enlarged. No new focal lung consolidations to suggest pneumonia. No evidence for pulmonary edema. IMPRESSION: No significant change compared to the prior study. No acute process. ACT 112: Negative or not required by law. Electronically signed by: Barrett Avila M.D. 03/04/2021 9:40 AM Knee X-Ray 03/04/21 08:52 XR knee RT 1 or 2V routine CLINICAL HISTORY: knee pain/redness/recent arthroplasty COMPARISON STUDY: Right knee radiographs 03/01/2021. FINDINGS: There is again noted a right total knee arthroplasty. The hardware is intact. No fracture or dislocation. Skin micah are in place. There is anterior soft tissue swelling and a small knee effusion. IMPRESSION: 1. Right total knee arthroplasty. 2. No fractures. 3. Anterior soft tissue swelling and a small right knee effusion. ACT 112: Negative or not required by law. Electronically signed by: Barrett Avila M.D. 03/04/2021 9:56 AM Venous Doppler Study 03/04/21 14:00 RIGHT LOWER EXTREMITY VENOUS DOPPLER HISTORY: Right leg swelling. evaluate DVT post op COMPARISON STUDY: None. FINDINGS: There is normal compressibility, flow, and augmentation within the right lower extremity deep venous system. IMPRESSION: No DVT within the right lower extremity ACT 112: Negative or not required by law. Electronically signed by: Barrett Avila M.D. 03/05/2021 8:14 AM :
[2021-03-07] MEDS: VANCOMYCIN HCL 1,000 MG in SODIUM CHLORIDE 0.9% 250 ML IV SCH (13:06)
--- NOTE | 2021-03-07 14:15 | Hospitalist Progress Note ---
Date of Service March 07, 2021 Assessment & Plan (1) Acute pain of right knee: Plan: S/P right knee arthroplasty On 03/01 And presents with significant right knee pain, swelling, and erythema on postop day #3 along with fever and leukocytosis - possibility of surrounding soft tissue infection- warm, erythema, swelling Appears significantly improved since starting on IV antibiotics-Less erythema and leukocytosis improved, but still having chills today With severe edema noted, venous Doppler obtained and was negative for DVT -Continue Tylenol as needed good response to Toradol 15mg IV q6 PRN for pain/anti-inflammatory effect -Continue ICE PRN -Continue Vancomycin for time being, do not suspect intra-articular infection change to Cefadroxil on discharge per ortho -Blood cultures negative - no fever - Orthopaedics consulted-Plan is continued ice, antibiotics, and observation good for discharge to [facility] tomorrow (2) History of total right knee replacement: Plan: As above - Continue pain control - Continue ICS q1 hour while awake -Replace Eliquis with Lovenox 40 mg SQ twice daily for DVT prophylaxis While holding Eliquis in case of need for surgery resume Eliquis on discharge (3) Atrial fibrillation: Plan: Afib- noted on loop recorder following CVA- paroxysmal atrial fibrillation She remains in sinus rhythm nation and on admitting EKG here Continue to hold Eliquis in case of need for surgery while here Continue metoprolol, Lovenox (4) Hyperlipidemia: Plan: No acute needs - Continue rosuvastain (5) Depression: Plan: Continue sertraline (6) Stroke: Plan: History of- no acute deficits Has some residual Cognitive issues - Holding home Eliquis for now as above-restart if no surgery to be performed -Continue statin - BP controlled (7) Constipation: Plan: Continue MiraLAX daily as needed -Start docusate/senna (8) Hypokalemia: Plan: Replaced with potassium chloride 20 M EQ p.o. twice daily Follow BMP - K 3.5 03/06 (9) DVT prophylaxis: Plan: SCD to left leg with ANA hose to left leg, Lovenox 40mg BID, hold home Eliquis in case of need for procedure Disposition-continued stay medical/surgical floor Admission and Anticipated Discharge Date Admission Date: March 04, 2021 Subjective patient still with pain d/w CM, can go to [facility] tomorrow d/w orthopedics, okay for discharge from their perspective, can use PO antibiotics on discharge eating fairly well, no dyspnea Review of Systems Review of Systems: All systems reviewed & are unremarkable except as noted in Subjective Constitutional: no fever, no fatigue and no weakness Respiratory: no cough, no dyspnea and no dyspnea on exertion Cardiovascular: no chest pain, no palpitations and no edema Gastrointestinal: no abdominal pain, no nausea, no vomiting, no constipation and no diarrhea/loose stools Musculoskeletal: + joint pain (right knee) Physical Exam Constitutional: WD/WN, vitals as above no acute distress Neck: trachea midline, no thyromegaly Respiratory: normal respiratory effort, lungs clear to auscultation Cardiovascular: RRR, no murmur, no edema Gastrointestinal (Abdomen): normal bowel sounds, soft, nontender, no hepatosplenomegaly Musculoskeletal: Spine: thoracic spine normal to inspection and lumbar spine normal to inspection Extremities: + extremities abnormal to inspection (right knee swollen, tender) Skin: no rashes, warm and dry Neurologic: patellar DTR's 2+ bilat, sensation intact and PERRL, EOMI, accommodation nl, no face palsy, no dysarthria Psychiatric: A+Ox3, euthymic affect Results & Data Results & Data ([facility]) Vital Signs (Past 12 Hours) Vital Signs Temp Pulse Resp BP Pulse Ox 03/07/21 07:51 36.7 C 101 H 16 133/68 95 Laboratory Results Laboratory Results - last 24 hr 03/07/21 03/07/21 07:20 07:20 WBC 8.11 RBC 3.25 L Hgb 11.5 L Hct 34.5 L MCV 106.2 H MCH 35.4 H MCHC 33.3 RDW Std Deviation 55.5 H RDW Coeff of David 14.3 Plt Count 169 MPV 11.1 H Immature Gran % (Auto) 0.5 Neut % (Auto) 58.6 Lymph % (Auto) 17.3 [place] % (Auto) 18.5 Eos % (Auto) 4.9 Baso % (Auto) 0.2 Neut # (Auto) 4.75 Lymph # (Auto) 1.40 [place] # (Auto) 1.50 H Eos # (Auto) 0.40 Baso # (Auto) 0.02 Immature Gran # (Auto) 0.04 H Sodium 140 Potassium 3.5 Chloride 108 H Carbon Dioxide 28 Anion Gap 4.0 BUN 7 Creatinine 0.66 Est Cr Clr Drug Dosing 75.8 Est GFR ( Amer) 98.1 Est GFR (Non-Af Amer) 84.6 BUN/Creatinine Ratio 9.8 L Glucose 95 Calcium 8.4 L Magnesium 2.4 Medications Administered Current Inpatient Medications Acetaminophen (Acetaminophen 325 Mg Tab) 650 mg PO Q4H PRN PRN Reason: pain/fever Stop: 04/03/21 16:46 Last Admin: 03/06/21 07:55 Dose: 650 mg Documented by: Baclofen (Baclofen 10 Mg Tab) 10 mg PO HS [facility] Stop: 04/03/21 20:59 Last Admin: 03/06/21 22:40 Dose: 10 mg Documented by: Cyanocobalamin (Cyanocobalamin 500 Mcg Tablet (Vitamin B-12)) 1,000 mcg PO QAM [facility] Stop: 04/04/21 08:59 Last Admin: 03/07/21 08:57 Dose: 1,000 mcg Documented by: Enoxaparin Sodium (Enoxaparin Inj 40 Mg/0.4 Ml Syr) 40 mg SQ Q12 [facility] Stop: 04/03/21 20:59 Last Admin: 03/07/21 09:50 Dose: 40 mg Documented by: Ergocalciferol (Ergocalciferol 50,000 Units 1250 Mcg Cap) 50,000 units PO We@0900 [facility] Stop: 04/07/21 08:59 Hydromorphone HCl (Hydromorphone Inj 0.5 Mg/0.5 Ml Syr) 0.5 mg IV Q4 PRN PRN Reason: severe breakthrough pain Stop: 03/19/21 12:03 Last Admin: 03/05/21 12:12 Dose: 0.5 mg Documented by: Vancomycin HCl 1,000 mg/ (Sodium Chloride) 270 mls @ 125 mls/hr IV Q12H [facility]; Protocol Stop: 03/11/21 11:59 Last Infusion: 03/07/21 14:07 Dose: 125 mls/hr Documented by: Ketorolac Tromethamine (Ketorolac Tromethamine 15 Mg/Ml Vial) 15 mg IV Q6H PRN PRN Reason: Pain Stop: 03/11/21 13:02 Last Admin: 03/07/21 09:49 Dose: 15 mg Documented by: Metoprolol Succinate (Metoprolol Succ 25mg Ext Rel Tab) 25 mg PO HS [facility] Stop: 04/03/21 20:59 Last Admin: 03/06/21 22:39 Dose: 25 mg Documented by: Miscellaneous Information (Vancomycin Consult Active) 1 ea N/A UD PRN PRN Reason: Consult Stop: 04/03/21 16:46 Ondansetron HCl (Ondansetron Inj 2 Mg/Ml 2 Ml Vial) 4 mg IV Q6H PRN PRN Reason: Nausea Stop: 04/03/21 16:46 Oxycodone HCl (Oxycodone Hcl Ir 5 Mg Tab (Immediate Release)) 5 - 10 mg PO Q6H PRN PRN Reason: pain Stop: 03/18/21 16:46 Last Admin: 03/07/21 10:55 Dose: 10 mg Documented by: Polyethylene Glycol (Polyethylene (Miralax) 17 Gm Pack) 17 gm PO DAILY [facility] Stop: 04/05/21 08:59 Last Admin: 03/07/21 09:16 Dose: Not Given Documented by: Potassium Chloride (Potassium Chloride Crtab 20 Meq Tabcr) 20 meq PO BID [facility] Stop: 04/03/21 20:59 Last Admin: 03/07/21 08:57 Dose: 20 meq Documented by: Rosuvastatin Calcium (Rosuvastatin Calcium 10 Mg Tab) 10 mg PO [facility] Stop: 04/03/21 20:59 Last Admin: 03/06/21 22:39 Dose: 10 mg Documented by: Senna/Docusate Sodium (Docusate Sodium/Senna 50/8.6mg Tab) 1 tab PO QAM [facility] Stop: 04/05/21 08:59 Last Admin: 03/07/21 08:57 Dose: 1 tab Documented by: Sertraline HCl (Sertraline Hcl 50 Mg Tablet) 50 mg PO [facility] Stop: 04/03/21 20:59 Last Admin: 03/06/21 22:32 Dose: 50 mg Documented by: PG Care Time/CCT Total # of Minutes Spent Total Time Spent with Patient: Total time spent is greater than 50% in coordination of care (as documented) at patient's floor/unit and/or counseling patient: Coding Level of Care Code 88317 Subseq Hosp Care Lvl 2 Diagnoses Acute pain of right knee M25.561 History of total right knee replacement Z96.651 Atrial fibrillation I48.91 Hyperlipidemia E78.5 Depression F32.9 Stroke I63.9 Constipation K59.00 Hypokalemia E87.6 DVT prophylaxis Z29.9
[2021-03-07] MEDS: ACETAMINOPHEN 325 MG TAB PO PRN (17:53)
[2021-03-07] MEDS: BACLOFEN 10 MG TAB PO SCH (21:13)
[2021-03-07] MEDS: ROSUVASTATIN CALCIUM 10 MG TAB PO SCH (21:14)
[2021-03-07] MEDS: SERTRALINE HCL 50 MG TABLET PO SCH (21:14)
[2021-03-07] MEDS: METOPROLOL SUCC 25MG EXT REL TAB PO SCH (21:15)
[2021-03-08] MEDS: VANCOMYCIN HCL 1,000 MG in SODIUM CHLORIDE 0.9% 250 ML IV SCH ×2 (00:23→11:43)
[2021-03-08 06:28] LABS: Hematocrit (blood only) 33.6 % (37-47); Hemoglobin 11.1 g/dL (12.0-16.0); Mean Corpuscular Hemoglobin 35.2 pg (25-34); Mean Corpuscular Volume 106.7 fL (80-100); Mean Platelet Volume 10.5 fL (7.4-10.4); Platelet Count 177 K/uL (130-400); RDW Coefficient of Variation 14.3 % (11.5-14.5); Red Blood Count 3.15 M/uL (4.2-5.4); White Blood Count 8.57 K/uL (4.8-10.8)
[2021-03-08 07:02] LABS: BUN Creatinine Ratio 9.7 (10-20); Calcium 8.2 mg/dl (8.5-10.1); Est GFR (African American) 85.7 ml/min; Potassium 3.7 mmol/L (3.5-5.1)
[2021-03-08] MEDS ORDERED: Nursing to Pharmacy Communication SCH (07:45)
[2021-03-08] MEDS: oxyCODONE HCL IR 5 MG TAB (IMMEDIATE RELEASE) PO PRN ×2 (07:52→20:39)
[2021-03-08] MEDS: POLYETHYLENE (MIRALAX) 17 GM PACK PO SCH (07:56)
[2021-03-08] MEDS: POTASSIUM CHLORIDE CRTAB 20 MEQ TABCR PO SCH ×2 (08:00→20:29)
[2021-03-08] MEDS: CYANOCOBALAMIN 500 MCG TABLET (VITAMIN B-12) PO SCH (08:00)
[2021-03-08] MEDS: DOCUSATE SODIUM/SENNA 50/8.6MG TAB PO SCH (08:01)
[2021-03-08] MEDS: ENOXAPARIN INJ 40 MG/0.4 ML SYR SQ SCH ×2 (08:01→20:28)
[2021-03-08] MEDS ORDERED: ERGOCALCIFEROL 50,000 UNITS 1250 MCG CAP PO SCH (09:00)
[2021-03-08] MEDS: METOPROLOL SUCC 25MG EXT REL TAB PO SCH (20:29)
[2021-03-08] MEDS: ROSUVASTATIN CALCIUM 10 MG TAB PO SCH (20:29)
[2021-03-08] MEDS: SERTRALINE HCL 50 MG TABLET PO SCH (20:29)
[2021-03-08] MEDS: BACLOFEN 10 MG TAB PO SCH (20:29)
--- NOTE | 2021-03-08 21:44 | Hospitalist Progress Note ---
Date of Service March 08, 2021 Assessment & Plan (1) Acute pain of right knee: Plan: S/P right knee arthroplasty On 03/01 And presents with significant right knee pain, swelling, and erythema on postop day #3 along with fever and leukocytosis - possibility of surrounding soft tissue infection- warm, erythema, swelling Appears significantly improved since starting on IV antibiotics-Less erythema and leukocytosis improved, but still having chills today With severe edema noted, venous Doppler obtained and was negative for DVT -Continue Tylenol as needed good response to Toradol 15mg IV q6 PRN for pain/anti-inflammatory effect -Continue ICE PRN -Continue Vancomycin for time being, do not suspect intra-articular infection change to Cefadroxil on discharge per ortho -Blood cultures negative - no fever - Orthopaedics consulted-Plan is continued ice, antibiotics, and observation good for discharge to SNF in [place] tomorrow (2) History of total right knee replacement: Plan: As above - Continue pain control - Continue ICS q1 hour while awake -Replace Eliquis with Lovenox 40 mg SQ twice daily for DVT prophylaxis While holding Eliquis in case of need for surgery resume Eliquis on discharge (3) Atrial fibrillation: Plan: Afib- noted on loop recorder following CVA- paroxysmal atrial fibrillation She remains in sinus rhythm nation and on admitting EKG here Continue to hold Eliquis in case of need for surgery while here Continue metoprolol, Lovenox (4) Hyperlipidemia: Plan: No acute needs - Continue rosuvastain (5) Depression: Plan: Continue sertraline (6) Stroke: Plan: History of- no acute deficits Has some residual Cognitive issues - Holding home Eliquis for now as above-restart if no surgery to be performed -Continue statin - BP controlled (7) Constipation: Plan: Continue MiraLAX daily as needed -Start docusate/senna (8) Hypokalemia: Plan: Replaced with potassium chloride 20 M EQ p.o. twice daily Follow BMP - K 3.5 03/06 (9) DVT prophylaxis: Plan: SCD to left leg with ANA hose to left leg, Lovenox 40mg BID, hold home Eliquis in case of need for procedure Disposition-continued stay medical/surgical floor Admission and Anticipated Discharge Date Admission Date: March 04, 2021 Subjective patient doing fine, still with pain in right knee, only taking Oxycodone 10mg PRN eating well, breathing well denied inpatient rehab at [facility], will need to try for SNF, can go tomorrow Review of Systems Review of Systems: All systems reviewed & are unremarkable except as noted in Subjective Musculoskeletal: + joint pain (right knee) Physical Exam Constitutional: WD/WN, vitals as above no acute distress Neck: trachea midline, no thyromegaly Respiratory: normal respiratory effort, lungs clear to auscultation Cardiovascular: RRR, no murmur, no edema Gastrointestinal (Abdomen): normal bowel sounds, soft, nontender, no hepatosplenomegaly Musculoskeletal: Spine: thoracic spine normal to inspection and lumbar spine normal to inspection Extremities: + extremities abnormal to inspection (right knee swollen, tender) Skin: no rashes, warm and dry Neurologic: patellar DTR's 2+ bilat, sensation intact and PERRL, EOMI, accomm odation nl, no face palsy, no dysarthria Psychiatric: A+Ox3, euthymic affect Results & Data Results & Data ([facility]) Vital Signs (Past 12 Hours) Vital Signs Temp Pulse Resp BP Pulse Ox 03/08/21 15:48 36.9 C 85 16 131/56 L 96 Laboratory Results Laboratory Results - last 24 hr 03/08/21 03/08/21 03/08/21 06:12 06:12 15:09 WBC 8.57 RBC 3.15 L Hgb 11.1 L Hct 33.6 L MCV 106.7 H MCH 35.2 H MCHC 33.0 RDW Std Deviation 56.0 H RDW Coeff of David 14.3 Plt Count 177 MPV 10.5 H Sodium 142 Potassium 3.7 Chloride 111 H Carbon Dioxide 28 Anion Gap 3.0 BUN 7 Creatinine 0.77 Est Cr Clr Drug Dosing 65.0 Est GFR ( Amer) 85.7 Est GFR (Non-Af Amer) 74.0 BUN/Creatinine Ratio 9.7 L Glucose 103 H Calcium 8.2 L [facility], RNA, NAAT 03/08/21 15:09 WBC RBC Hgb Hct MCV MCH MCHC RDW Std Deviation RDW Coeff of David Plt Count MPV Sodium Potassium Chloride Carbon Dioxide Anion Gap BUN Creatinine Est Cr Clr Drug Dosing Est GFR ( Amer) Est GFR (Non-Af Amer) BUN/Creatinine Ratio Glucose Calcium COVID-19 Eval Order SARS-CoV-2, RNA, NAAT NEGATIVE Medications Administered Current Inpatient Medications Acetaminophen (Acetaminophen 325 Mg Tab) 650 mg PO Q4H PRN PRN Reason: pain/fever Stop: 04/03/21 16:46 Last Admin: 03/07/21 17:53 Dose: 650 mg Documented by: Baclofen (Baclofen 10 Mg Tab) 10 mg PO HS [facility] Stop: 04/03/21 20:59 Last Admin: 03/08/21 20:29 Dose: 10 mg Documented by: Cyanocobalamin (Cyanocobalamin 500 Mcg Tablet (Vitamin B-12)) 1,000 mcg PO QAM [facility] Stop: 04/04/21 08:59 Last Admin: 03/08/21 08:00 Dose: 1,000 mcg Documented by: Enoxaparin Sodium (Enoxaparin Inj 40 Mg/0.4 Ml Syr) 40 mg SQ Q12 [facility] Stop: 04/03/21 20:59 Last Admin: 03/08/21 20:28 Dose: 40 mg Documented by: Ergocalciferol (Ergocalciferol 50,000 Units 1250 Mcg Cap) 50,000 units PO We@0900 [facility] Stop: 04/07/21 08:59 Last Admin: 03/08/21 08:00 Dose: 50,000 units Documented by: Hydromorphone HCl (Hydromorphone Inj 0.5 Mg/0.5 Ml Syr) 0.5 mg IV Q4 PRN PRN Reason: severe breakthrough pain Stop: 03/19/21 12:03 Last Admin: 03/05/21 12:12 Dose: 0.5 mg Documented by: Vancomycin HCl 1,000 mg/ (Sodium Chloride) 270 mls @ 125 mls/hr IV Q12H [facility]; Protocol Stop: 03/11/21 11:59 Last Infusion: 03/08/21 13:59 Dose: Infused Documented by: Ketorolac Tromethamine (Ketorolac Tromethamine 15 Mg/Ml Vial) 15 mg IV Q6H PRN PRN Reason: Pain Stop: 03/11/21 13:02 Last Admin: 03/07/21 09:49 Dose: 15 mg Documented by: Metoprolol Succinate (Metoprolol Succ 25mg Ext Rel Tab) 25 mg PO HS [facility] Stop: 04/03/21 20:59 Last Admin: 03/08/21 20:29 Dose: 25 mg Documented by: Miscellaneous Information (Vancomycin Consult Active) 1 ea N/A UD PRN PRN Reason: Consult Stop: 04/03/21 16:46 Ondansetron HCl (Ondansetron Inj 2 Mg/Ml 2 Ml Vial) 4 mg IV Q6H PRN PRN Reason: Nausea Stop: 04/03/21 16:46 Oxycodone HCl (Oxycodone Hcl Ir 5 Mg Tab (Immediate Release)) 5 - 10 mg PO Q6H PRN PRN Reason: pain Stop: 03/18/21 16:46 Last Admin: 03/08/21 20:39 Dose: 10 mg Documented by: Polyethylene Glycol (Polyethylene (Miralax) 17 Gm Pack) 17 gm PO DAILY [facility] Stop: 04/05/21 08:59 Last Admin: 03/08/21 07:56 Dose: Not Given Documented by: Potassium Chloride (Potassium Chloride Crtab 20 Meq Tabcr) 20 meq PO BID [facility] Stop: 04/03/21 20:59 Last Admin: 03/08/21 20:29 Dose: 20 meq Documented by: Rosuvastatin Calcium (Rosuvastatin Calcium 10 Mg Tab) 10 mg PO [facility] Stop: 04/03/21 20:59 Last Admin: 03/08/21 20:29 Dose: 10 mg Documented by: Senna/Docusate Sodium (Docusate Sodium/Senna 50/8.6mg Tab) 1 tab PO QAM [facility] Stop: 04/05/21 08:59 Last Admin: 03/08/21 08:01 Dose: 1 tab Documented by: Sertraline HCl (Sertraline Hcl 50 Mg Tablet) 50 mg PO HS [facility] Stop: 04/03/21 20:59 Last Admin: 03/08/21 20:29 Dose: 50 mg Documented by: PG Care Time/CCT Total # of Minutes Spent Total Time Spent with Patient: Total time spent is greater than 50% in coordination of care (as documented) at patient's floor/unit and/or counseling patient: Coding Level of Care Code 71476 Subseq Hosp Care Lvl 2 Diagnoses Acute pain of right knee M25.561 History of total right knee replacement Z96.651 Atrial fibrillation I48.91 Hyperlipidemia E78.5 Depression F32.9 Stroke I63.9 Constipation K59.00 Hypokalemia E87.6 DVT prophylaxis Z29.9
[2021-03-09] MEDS: VANCOMYCIN HCL 1,000 MG in SODIUM CHLORIDE 0.9% 250 ML IV SCH (00:44)
[2021-03-09] MEDS: DOCUSATE SODIUM/SENNA 50/8.6MG TAB PO SCH (07:14)
[2021-03-09] MEDS: POTASSIUM CHLORIDE CRTAB 20 MEQ TABCR PO SCH (07:14)
[2021-03-09] MEDS: ENOXAPARIN INJ 40 MG/0.4 ML SYR SQ SCH (07:15)
[2021-03-09] MEDS: CYANOCOBALAMIN 500 MCG TABLET (VITAMIN B-12) PO SCH (07:15)
[2021-03-09] MEDS: POLYETHYLENE (MIRALAX) 17 GM PACK PO SCH (07:16)
[2021-03-09] MEDS: oxyCODONE HCL IR 5 MG TAB (IMMEDIATE RELEASE) PO PRN (08:47)
--- NOTE | 2021-03-09 09:57 | Discharge Summary ---
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 Martell. Patient was discharged to home on 03/02/21 on oral clindamycin. Patient comes in today for complaints of her knee hurting and afraid and unable to move it because of the pain. She had PT/OT evaluation performed in the hospital as she was having difficulty with transfer and using her walker, she had a PT visit at home yesterday, where she states she was unable to do much because of the pain. She rates her pain 8/10 and says her whole leg is sore. The area has some surrounding erythema to it, with +2 edema from knee down to foot and is larger than her left leg. In the EMD the patient had a routine labs, CXR, UA, and right knee films done. The patient has a WBC count 12 this is down from her 18 previous, although she had a low grade temperature in the EMD to 37.9. She was given Levaquin and Vancomycin in the EMD. Orthopaedics was consulted and IM was notified for admission. Patient will be admitted to medical/surgical floor. Pain control, PT/OT evaluations, continue Vancomycin, continue Orthopaedics consult, ultrasound right lower extremity for DVT. Patient will likely need rehab facility for continued ROM support and ADLS. Principal Diagnosis s/p right TKA, severe pain, possible cellulitis Discharge Exam Constitutional WD/WN, vitals as above no acute distress Neck trachea midline, no thyromegaly Respiratory normal respiratory effort, lungs clear to auscultation Cardiovascular RRR, no murmur, no edema Gastrointestinal (Abdomen) normal bowel sounds, soft, nontender, no hepatosplenomegaly Musculoskeletal Spine: thoracic spine normal to inspection and lumbar spine normal to inspection Extremities: + extremities abnormal to inspection (right knee swollen, tender) Skin no rashes, warm and dry Neurologic patellar DTR's 2+ bilat, sensation intact and PERRL, EOMI, accommodation nl, no face palsy, no dysarthria Psychiatric A+Ox3, euthymic affect Discharge Data Allergies Allergy/AdvReac Type Severity Reaction Status Date / Time amoxicillin Allergy Mild Rash Verified 03/04/21 09:11 celecoxib [From Celebrex] Allergy Mild Rash Verified 03/04/21 09:11 latex Allergy Mild Rash Verified 03/04/21 09:11 Sulfa (Sulfonamide Allergy Mild Rash Verified 03/04/21 09:11 Antibiotics) valdecoxib [From Bextra] Allergy Mild Rash Verified 03/04/21 09:11 tramadol Allergy Unknown Unknown Verified 03/04/21 09:11 reaction lactose AdvReac Unknown Unknown Verified 03/06/21 15:35 Consultations 03/04/21 13:06 ED Decision to Admit Stat 03/04/21 16:47 Consult Orthopedic Surgery Routine Ordered Studies 03/04/21 14:00 US venous doppler LE RT Routine Hospital Course (1) Acute pain of right knee: S/P right knee arthroplasty On 03/01 And presents with significant right knee pain, swelling, and erythema on postop day #3 along with fever and leukocytosis - possibility of surrounding soft tissue infection- warm, erythema, swelling Appears significantly improved since starting on IV antibiotics-Less erythema and leukocytosis improved, but still having chills today With severe edema noted, venous Doppler obtained and was negative for DVT -Continue Tylenol as needed good response to Toradol 15mg IV q6 PRN for pain/anti-inflammatory effect -Continue ICE PRN -Continue Vancomycin for time being, do not suspect intra-articular infection change to Cefadroxil on discharge per ortho -Blood cultures negative - no fever - Orthopaedics consulted-Plan is continued ice, antibiotics, and observation good for discharge to SNF [facility] Pain control: Oxycodone, Tylenol, small doses of ibuprofen elevated and ICE while in bed continue therapy Cefadroxil 500mg BID x 10 more days for routine skin coverage post op on Eliquis to cover for DVT prophylaxis (2) History of total right knee replacement: As above - Continue pain control - Continue ICS q1 hour while awake (3) Atrial fibrillation: Afib- noted on loop recorder following CVA- paroxysmal atrial fibrillation She remains in sinus rhythm nation and on admitting EKG here Continue metoprolol, Eliquis (4) Hyperlipidemia: No acute needs - Continue rosuvastain (5) Depression: Continue sertraline (6) Stroke: History of- no acute deficits Has some residual Cognitive issues - Holding home Eliquis for now as above-restart if no surgery to be performed -Continue statin - BP controlled (7) Constipation: Continue MiraLAX daily as needed -Start docusate/senna continue bowel regimen while taking Oxycodone (8) Hypokalemia: Replaced with potassium chloride 20 M EQ p.o. twice daily Follow BMP - K 3.5 03/06 (9) DVT prophylaxis: SCD to left leg with ANA hose to left leg, Lovenox 40mg BID, hold home Eliquis in case of need for procedure Disposition-discharge to SNF rehab Total Time Total Time Spent Total Time Spent (In Minutes): 32 Discharge Plan Discharge Items Patient Disposition: Transfer Usp Fac Reason For Visit: POSTOPERATIVE PAIN AND FEVER Discharge Diagnosis: s/p right TKA right knee pain, cellulitis Condition on Discharge: Good Goals: pain control improve strength and mobility Activity: Resume your previous activity Non-emergency contact: Primary Care Provider and Surgeon Call non-emergency contact if: you have any medication questions Follow-up/Referrals: Milad Arreguin DO [Primary Care Provider] - Diet: Regular Addtl Attending Provider Instructions: Right knee pain after TKA, erythema of skin, possible mild cellulitis evaluated by orthopedic surgery, no concerns for intra-articular infection treated with Vancomycin IV while here change back to Cefadroxil 500mg BID for 10 more days as routine post op coverage for pain control, use Oxycodone 5-10mg every 6 hours as needed, patient has been getting 10mg here use Tylenol 650mg every 6 hours, try giving this scheduled use ibuprofen 400mg every 8 hours as an adjunct, h/o rash with Celebrex but no rash here with toradol administration keep on bowel regimen with Senokot S and Miralax while taking so much oxycodone patient needs motivated to participate with therapy, need to pre-medicate with Oxycodone encouraged her to be patient, pain should slowly improve 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 You may need to continue a physical therapy program after discharge from the hospital. There are several options available to you. Your doctor will assist you in selecting the best one for you. 1. An out-patient facility 2 to 3 times a week for therapy or home therapy. 2. Continue working on all exercises taught to you in the hospital. Your goals should be to increase bending of your knee to 90 degrees and beyond and to fully straighten your knee. B. You may progress at your own pace from walking with a walker or crutches to a cane; then to no assistive devices. C. Make walking a part of your daily routine. Be up as much as comfortable with rest periods throughout the day. Rest with leg elevation is very important. Use the ice wrap frequently for the first 3-4 weeks. D. There are no restrictions on activities. You may ride in a car, shop, participate in pamphlet distributor and all social activities. E. Wear the long elastic stockings (ANA hose) 20 hours a day for 2 weeks after surgery. They can be removed several times a day for laundering and for a bath. F. You may shower, no tub baths until cleared by your doctor. SPECIAL CARE INSTRUCTIONS: VERY IMPORTANT TO READ AND REVIEW A. There are a few signs you need to watch for after you are home. Call [facility] if you notice any of the followin. Increased severe knee pain. Some pain is expected especially when you exercise. 2. Increased swelling in your leg or knee; pain or swelling of the calf muscle in either lower leg. 3. Any fluid drainage from the incision. 4. Shortness of breath or chest pain. B. Please call [facility] at if you have any concerns or questions about your operation or recovery. The doctor or his nurse will return your call promptly. C. You must take antibiotics before dental work, bladder, bowel or other surgery. Your doctor will provide you with a permanent care to carry describing this precaution. IMPORTANT: * REMEMBER TO TAKE ASPIRIN, 81 MG, TWICE DAILY FOR 4 WEEKS UNLESS OTHERWISE DIRECTED. THIS IS YOUR BLOOD THINNER. * HIGH RISK PATIENTS MAY BE PRESCRIBED A STRONGER BLOOD THINNER. THIS WILL BE PROVIDED AT DISCHARGE. * CALL IF INCREASED PAIN, REDNESS, DRAINAGE OR FEVER GREATER THAT 101. * WEAR ANA HOSE 20 HOURS PER DAY FOR 2 WEEKS. * IF INCISION IS LEAKING THROUGH DRESSING, CALL THE OFFICE . FOLLOW UP VISIT: If appointment is not already scheduled: Please call [facility] to make a follow-up appointment for 2 weeks after your surgery at . Pending Studies at Discharge: No Stand-Alone Forms: My [facility] Skilled Items Patient informed of condition?: Yes DNR: No Discharge Level of Care: Skilled Communicable Disease: No Discharge Prognosis: Stable Lines: None Urinary Catheter: No Medications and DC Order Prescriptions: New cefadroxil 500 mg capsule 500 mg PO BID Qty: 20 RF: 0 polyethylene glycol 3350 [Miralax] 17 gram Powder In Packet 17 g PO DAILY PRN (Reason: Constipation) 30 Days Qty: 30 RF: 0 sennosides-docusate sodium [Senokot-S] 8.6-50 mg Tablet 1 tab PO QAM 14 Days Qty: 14 RF: 0 Continued baclofen 10 mg Tablet 10 mg PO HS RF: 0 docusate sodium [Stool Softener] 100 mg Capsule 100 mg PO DAILY PRN (Reason: Constipation) RF: 0 metoprolol succinate 25 mg Tablet Extended Release 24 Hr 25 mg PO HS RF: 0 ergocalciferol (vitamin D2) [Vitamin D2] 1,250 mcg (50,000 unit) Capsule 1,250 mcg PO WK RF: 0 sertraline 50 mg Tablet 50 mg PO HS RF: 0 rosuvastatin 10 mg Tablet 10 mg PO HS RF: 0 Eliquis 5 mg Tablet 5 mg PO BID RF: 0 cyanocobalamin (vitamin B-12) 1,000 mcg Capsule 1,000 mcg PO QAM RF: 0 acetaminophen [Tylenol Extra Strength] 500 mg Tablet 1,000 mg PO Q8 21 Days Qty: 126 RF: 0 oxycodone 5 mg Tablet 5 - 10 mg PO Q6H PRN (Reason: pain) Qty: 30 RF: 0 Discontinued clindamycin HCl 300 mg capsule 300 mg PO TID 7 Days Qty: 21 RF: 0 Discharge Orders: Discharge Order (Routine); Ordered 03/09/21 Ordered By: Joshua Rodriguez Admission Data Admit Date/Time: 03/04/21 14:17 Attending Provider: Joshua Rodriguez Admit Provider: Griselda Franklin Primary Care Provider: Milad Arreguin Other Providers: Michael Delong ; Gildardo Cordova Other Interventions: Discharge Summary Assessment (RN) Last Done: 03/09/21 09:50 Coding Level of Care Code D/C DAY MANAGEMENT >30 MINS Diagnoses Acute pain of right knee M25.561 History of total right knee replacement Z96.651 Atrial fibrillation I48.91 Hyperlipidemia E78.5 Depression F32.9 Stroke I63.9 Constipation K59.00 Hypokalemia E87.6 DVT prophylaxis Z29.9
[2021-03-09] MEDS ORDERED: VANCOMYCIN TROUGH ONE (11:30)
== END 2021-03-09 10:07 | DRG 603 ==
LOC: ED 08:20 → 3N 14:17 → SUATTDRO 14:17 → 3N 16:05